=== PATIENT | male | born 1965 | race Caucasian/White ===

== ENCOUNTER 2016-08-22 18:23 | Emergency (ER) | payer BC ==
[~2016-08-22] VITALS: Ht 172.7 cm; Wt 97.5 kg
[2016-08-22 18:44] VITALS: BP 174/99
--- NOTE | 2016-08-22 19:23 | NUR ---
PT TAKEN TO BED 1
[2016-08-22 19:27] VITALS: BP 146/82
--- NOTE | 2016-08-22 19:27 | NUR ---
51 Y/O HERE C/O COUGH AND TIDENESS ON CHEST X 1 MONTH. NO S/S OF DISTRESS NOTED AT THIS TIME. PT O2 SAT 100% ON RA. ER MD AWARED OF IT.
--- NOTE | 2016-08-22 19:30 | NUR ---
Dr. Otero evaluating patient at bedside.
[2016-08-22] MEDS ORDERED: NACL 0.9% 1,000 ML IV ONE (19:40)
[2016-08-22] MEDS ORDERED: AMOXICILLIN 500 MG CAP PO ONE (19:40)
[2016-08-22] MEDS ORDERED: ASPIRIN 81 MG TAB.CHEW PO ONE (19:40)
[2016-08-22] MEDS ORDERED: POTASSIUM CHLORIDE 10 MEQ TABER PO ONE (20:30)
[2016-08-22] MEDS ORDERED: NITROGLYCERIN 2% 1 GM PKT TP ONE (20:35)
[2016-08-22] MEDS ORDERED: METOPROLOL 25 MG TAB PO ONE (20:35)
--- NOTE | 2016-08-22 20:41 | NUR ---
PT WENT AMA, ER MD AWARED OF IT. NO S/S OF DISTRESS AT THIS TIME.
[2016-08-22] MEDS ORDERED: LISINOPRIL40 M1 PO (20:42)
[2016-08-22] MEDS ORDERED: ELIQUIS5 MG PO (20:42)
[2016-11-25] MEDS ORDERED: PROVENTIL HFA M18 GM INH (11:57)
[2016-11-25] MEDS ORDERED: LEVAQUIN750 MG PO (11:57)
[2016-11-25] MEDS ORDERED: ATIVAN0.5 MG PO (11:57)
[2016-11-25] MEDS ORDERED: BD LACTINEX1.4 MG PO (14:20)
[2016-11-25] MEDS ORDERED: CLEOCIN HCL150 MG PO (14:20)
== END 2016-08-22 20:41 | disposition left against medical advice (07) ==
LOC: MED 18:23
DX: R07.89 Other chest pain (principal); R05 Cough; R06.02 Shortness of breath; I10 Essential (primary) hypertension; F17.200 Nicotine dependence, unspecified, uncomplicated; Z53.21 Procedure and treatment not carried out due to patient leaving prior to being seen by health care provider; Z71.6 Tobacco abuse counseling
CPT/HCPCS: 36415; 71010; 80053; 84484; 85025; 85610; 85730; 93005; 99285; J7030; Q0092

== ENCOUNTER 2016-11-22 17:23 | Inpatient (IN) | payer BC ==
[~2016-11-22] VITALS: Ht 172.7 cm; Wt 92.5 kg
[~2016-11-22 17:23] MED LIST: APIX5TAB PO; LISI40TA4 PO
[2016-11-22 17:41] VITALS: BP 144/86
[2016-11-22 18:25] LABS: APPEARANCE,URINE CLEAR (CLEAR); BILIRUBIN,URINE NEGATIVE (NEGATIVE); BLOOD, URINE 1+ (NEGATIVE); COLOR,URINE YELLOW (YELLOW); HEMOGLOBIN 13.4 g/dL (12.0-18.0); LEUKOCYTE ESTERASE ,URINE NEGATIVE (NEGATIVE); NITRITE, URINE NEGATIVE (NEGATIVE); PROTEIN,URINE NEGATIVE (NEGATIVE); UGLUCOSE NEGATIVE (NEGATIVE)
[2016-11-22 18:27] LABS: BASOPHILS # (AUTO) 0.1 K/uL (0.00-0.22); BASOPHILS % (AUTO) 1.4 % (0.0-2.0); EOSINOPHILS # (AUTO) 0.1 K/uL (0-0.4); EOSINOPHILS % (AUTO) 2.3 % (0.0-4.0); HEMATOCRIT 40.4 % (36-52); LYMPHOCYTES # (AUTO) 0.8 K/uL (2.0-11.5); LYMPHOCYTES % (AUTO) 13.1 % (20.5-51.1); MEAN CORPUSCULAR HEMOGLOBIN 30 pg (27-31); MEAN CORPUSCULAR HGB CONC 33 g/dL (33-37); MEAN CORPUSCULAR VOLUME 90 fL (80-94); MONOCYTES # (AUTO) 0.5 K/uL (0.8-1.0); MONOCYTES % (AUTO) 7.7 % (1.7-9.3); NEUTROPHILS # (AUTO) 4.6 K/uL (1.8-7.7); NEUTROPHILS % (AUTO) 75.5 % (42.2-75.2); PLATELET COUNT (AUTO) 109 K/uL (140-450); RED BLOOD CELL COUNT(AUTO) 4.49 MIL/uL (4.20-6.10); RED CELL DISTRIBUTION WIDTH 13.6 % (11.6-13.7); WHITE BLOOD COUNT (AUTO) 6.1 K/uL (4.8-10.8)
[2016-11-22 18:40] LABS: BACTERIA,URINE None Seen /HPF (None Seen); RBC,URINE 0-5 (RARE) /HPF (0-5); SQUAMOUS EPITHELIAL CELL,UR None Seen /LPF (0-3 (FEW)); WBC,URINE NONE SEEN /HPF (0-5)
[2016-11-22 18:43] LABS: ANION GAP 13.2 (8-16); CALCIUM 8.5 mg/dL (8.5-10.1); CARBON DIOXIDE 28.3 mmol/L (21-32); CREATININE 1.1 mg/dL (0.6-1.3); POTASSIUM 3.5 mmol/L (3.5-5.1)
[2016-11-22 18:46] LABS: INR 1.1 (0.8-1.2); PROTHROMBIN TIME 10.6 secs (10.8-13.4)
[2016-11-22 18:50] LABS: ALBUMIN 3.2 g/dL (3.4-5.0); TOTAL BILIRUBIN 0.3 mg/dL (0.0-1.0); TOTAL PROTEIN, SERUM 6.5 g/dL (6.4-8.2)
[2016-11-22 18:52] LABS: LACTIC ACID 1.4 mmol/L (0.4-2.0)
--- NOTE | 2016-11-22 19:25 | NUR ---
TO ER BED 5
--- NOTE | 2016-11-22 19:28 | NUR ---
Patient being evaluated by physician at bedside.
[2016-11-22] MEDS ORDERED: NACL 0.9% 1,000 ML IV ONE (19:35)
[2016-11-22] MEDS ORDERED: KETOROLAC 30 MG/ML VIAL IVP ONE (19:35)
[2016-11-22] MEDS ORDERED: PIPERACILLIN/TAZOBACTAM 3.375 GM in DEXTROSE 5% 50 ML IV ONE (19:45)
[2016-11-22] MEDS ORDERED: PIPERACILLIN/TAZOBACTAM 3.375 GM VIAL IV ONE (19:53)
--- NOTE | 2016-11-22 20:00 | NUR ---
PATIENT PRESENTS TO ED WITH C/O CHEST PAIN OF 8/10 X 1 DAY PT DENIES N/V/D; SKIN IS PINK/WARM/DRY; AAOX4 WITH EVEN AND STEADY GAIT; HR EVEN AND REGULAR; PT DENIES ANY FEVER OR SOB AT THIS TIME; PATIENT STATES PAIN OF 8/10 AT THIS TIME; VSS; PATIENT POSITIONED FOR COMFORT; HOB ELEVATED; BEDRAILS UP X2; BED DOWN. ER MD MADE AWARE OF PT STATUS.
[2016-11-22] MEDS ORDERED: ASPIRIN 81 MG TAB.CHEW PO ONE (20:05)
--- NOTE | 2016-11-22 20:40 | NUR ---
Patient will be admitted to care of DR MURPHY. Admited to TELE. Will go to room 105A. Belongings list completed. Report to YARI WEI.
[2016-11-22] MEDS ORDERED: ACETAMINOPHEN 325 MG TAB PO PRN (20:45)
[2016-11-22] MEDS ORDERED: ONDANSETRON 4 MG/2 ML VIAL IVP PRN (20:45)
[2016-11-22] MEDS ORDERED: LORazepam 2 MG/ML VIAL IVP PRN (20:45)
[2016-11-22] MEDS ORDERED: HYDROcodone/APAP 5/325 MG 1 TAB TAB PO PRN (20:45)
[2016-11-22 20:48] VITALS: BP 153/97
--- NOTE | 2016-11-22 20:50 | NUR ---
PATIENT ADMITTED TO THE UNIT FROM ED, PATIENT ARRIVED VIA GURNEY, ON ROOM AIR, NO SOB NOTED BUT PATIENT COUGHING PERSISTENTLY, MILD SPUTUM PRODUCTION. PATIENT ABLE TO AMBULATE TO BED WITH ASSISTANCE, MILD WEAKNESS NOTED. PATIENT AAOX4, CONNECTED TO TELE MONITOR, ORIENTED TO ROOM AND CALL LIGHT. IV TO LEFT UPPER ARM PATENT AND INTACT. SKIN INTACT. SAFETY MEASURES CHECKED, CALL LIGHT WITHIN REACH. WILL CONTINUE TO MONITOR.
[2016-11-22] MEDS: APIXABAN 2.5 MG TAB PO SCH (21:00)
[2016-11-22] MEDS ORDERED: LEVOFLOXACIN 750 MG/D5W PREMIX 150 ML IV SCH (21:00)
[2016-11-22] MEDS ORDERED: ALBUTEROL 0.083% 2.5 MG/3 ML NEBU IH PRN (21:05)
[2016-11-22] MEDS ORDERED: CLINDAMYCIN 600 MG/4 ML VIAL ONE (21:17)
[2016-11-22] MEDS: METOPROLOL 25 MG TAB PO SCH (21:22)
[2016-11-22] MEDS: CLINDAMYCIN 600 MG in DEXTROSE 5% 50 ML IV SCH (21:22)
[2016-11-22] MEDS: NACL 0.9% 1,000 ML IV SCH (21:22)
[2016-11-22] MEDS: ATORVASTATIN 20 MG TAB PO SCH (21:22)
[2016-11-22] MEDS: MORPHINE SULFATE 2 MG/ML SYR IVP PRN (21:39)
--- NOTE | 2016-11-22 21:40 | NUR ---
ADMINISTERED PAIN MEDICATION PER MD ORDER, PATIENT C/O CHEST PAIN 8/10 IN MEDIAL CHEST. WORSE WITH COUGHING. WILL CONTINUE TO MONITOR.
--- NOTE | 2016-11-22 22:00 | NUR ---
ATTEMPTED TO INSTRUCT PT ON USE OF INCENTIVE SPIROMETER, HOWEVER PT UNABLE TO DO DUE TO PERSISTENT NON PRODUCTIVE COUGH. PT'S RN, ERIBERTO INFORMED OF PT'S INABILITY TO DO INCENTIVE SPIROMETER AND HIS COUGH. SHE WILL CALL MD FOR COUGH MEDICATION.
--- NOTE | 2016-11-22 22:00 | NUR ---
PAGED DR BEST, PATIENT HAVING PERSISTENT COUGH WITH SPUTUM PRODUCTION, REQUESTED COUGH MEDICINE, WILL F/U WITH ORDERS.
[2016-11-22] MEDS: LEVOFLOXACIN 750 MG/D5W PREMIX 150 ML IV SCH (22:52)
[2016-11-22] MEDS: guaiFENesin/CODEINE 100/10MG 5 ML UDC PO SCH (23:00)
[2016-11-23] VITALS: BP 135/84
--- NOTE | 2016-11-23 00:29 | NUR ---
VITAL SIGNS STABLE, PATIENT CONTINUES TO HAVE PERSISTENT COUGH WITHOUT SOB. PROVIDED HOT WATER AND TEA, PATIENT SITTING UP IN BED, CALL LIGHT WITHIN REACH. WILL CONTINUE TO MONITOR.
[2016-11-23] MEDS: MORPHINE SULFATE 2 MG/ML SYR IVP PRN ×5 (01:43→20:19)
--- NOTE | 2016-11-23 02:35 | NUR ---
PATIENT RESTING IN BED, SPUTUM CULTURE OBTAINED CALL LIGHT WITHIN REACH. WILL CONTINUE TO MONITOR.
[2016-11-23 04:00] VITALS: BP 134/67
--- NOTE | 2016-11-23 04:22 | NUR ---
VITAL SIGNS STABLE, NO SOB OR SIGN OF DISTRESS, CALL LIGHT WITHIN REACH. WILL CONTINUE TO MONITOR.
[2016-11-23] MEDS ORDERED: CLINDAMYCIN 600 MG/4 ML VIAL ONE (04:45)
[2016-11-23] MEDS: CLINDAMYCIN 600 MG in DEXTROSE 5% 50 ML IV SCH (04:53)
[2016-11-23] MEDS: guaiFENesin/CODEINE 100/10MG 5 ML UDC PO SCH (05:16)
[2016-11-23 06:17] LABS: BASOPHILS # (AUTO) 0.1 K/uL (0.00-0.22); BASOPHILS % (AUTO) 1.8 % (0.0-2.0); EOSINOPHILS # (AUTO) 0.1 K/uL (0-0.4); EOSINOPHILS % (AUTO) 1.9 % (0.0-4.0); HEMATOCRIT 37.7 % (36-52); HEMOGLOBIN 12.8 g/dL (12.0-18.0); LYMPHOCYTES # (AUTO) 0.9 K/uL (2.0-11.5); LYMPHOCYTES % (AUTO) 15.5 % (20.5-51.1); MEAN CORPUSCULAR HEMOGLOBIN 30 pg (27-31); MEAN CORPUSCULAR HGB CONC 34 g/dL (33-37); MEAN CORPUSCULAR VOLUME 89 fL (80-94); MONOCYTES # (AUTO) 0.4 K/uL (0.8-1.0); MONOCYTES % (AUTO) 7.2 % (1.7-9.3); NEUTROPHILS # (AUTO) 4.2 K/uL (1.8-7.7); NEUTROPHILS % (AUTO) 73.6 % (42.2-75.2); PLATELET COUNT (AUTO) 89 K/uL (140-450); RED BLOOD CELL COUNT(AUTO) 4.22 MIL/uL (4.20-6.10); RED CELL DISTRIBUTION WIDTH 13.1 % (11.6-13.7); WHITE BLOOD COUNT (AUTO) 5.7 K/uL (4.8-10.8)
[2016-11-23 06:50] LABS: ANION GAP 13.6 (8-16); CALCIUM 8.1 mg/dL (8.5-10.1); CARBON DIOXIDE 26.1 mmol/L (21-32); CREATININE 1.1 mg/dL (0.6-1.3); POTASSIUM 3.7 mmol/L (3.5-5.1)
[2016-11-23 06:58] LABS: CHOL/HDL RATIO 3.8 (1-4.5); MAGNESIUM 1.7 mg/dL (1.8-2.4); PHOSPHORUS 3.4 mg/dL (2.5-4.9)
--- NOTE | 2016-11-23 07:20 | NUR ---
ENDORSED PATIENT TO DAY RN AT BEDSIDE, PATIENT IN STABLE CONDITION.
--- NOTE | 2016-11-23 07:21 | NUR ---
RECEIVED PT IN BED. ALERT, AWAKE, ORIENTEDX4. NO SOB NOTED AT THIS TIME. PAIN PER REASSESSMENT SUBSIDING DOWN. POSITIVE BOWEL SOUNDS NOTED ON FOUR QUADRANTS. PT DENIES ANY PROBLEM WITH BOWEL OR BLADER ELIMINATION. PT AMBULATORY. SKIN INTACT. SAFETY PRECAUTION IN PLACE. CALL LIGHT WITHIN REACH.
[2016-11-23 08:00] VITALS: BP 126/88
[2016-11-23] MEDS ORDERED: LISINOPRIL 20 MG TAB PO SCH (09:00)
[2016-11-23] MEDS ORDERED: guaiFENesin/CODEINE 100/10MG 5 ML UDC PO PRN (09:25)
[2016-11-23] MEDS ORDERED: LORazepam 1 MG TAB PO SCH (09:51)
[2016-11-23] MEDS: METOPROLOL 25 MG TAB PO SCH ×2 (09:54→21:42)
[2016-11-23] MEDS ORDERED: PROMETH/CODEINE 6.25-10MG/5ML 5 ML UDC PO PRN (10:05)
[2016-11-23] MEDS ORDERED: MAG SULF 2000 MG/WATER PREMIX 50 ML IV SCH (10:10)
--- NOTE | 2016-11-23 10:15 | NUR ---
PATIENT HAS BEEN SCREENED AND CATEGORIZED MODERATE NUTRITION RISK. PATIENT WILL BE SEEN WITHIN 3-5 DAYS OF ADMISSION. 11/25/16-11/27/[address]
--- NOTE | 2016-11-23 10:16 | NUR ---
ABG ATTEMPTED COULD NOT OBTAIN PT DEFERS FURTHER ATTEMPTS AT THIS TIME
[2016-11-23] MEDS: APIXABAN 2.5 MG TAB PO SCH ×2 (10:19→21:00)
--- NOTE | 2016-11-23 10:56 | NUR ---
CM NOTE PER FEEDER/FOLDER PHYLLIS SEND REVIEWS TO [employer] FAX# [phone]. INITIAL REVIEW SENT TO [employer] [facility] FAX# [phone] # [phone] REF# [id number]
--- NOTE | 2016-11-23 11:00 | NUR ---
RECEIVED A CALL [facility] REGARDING DR. BUTTERFIELD'S ORDER FOR CT SCHEST ANGIOGRAM WITH CONTRAST. 20 G IV INSERTED ON RIGHT AC. PT ON NPO FOR 2 HRS FOR THE PROCEDURE. PT VERBALIZED UNDERSTANDING.
[2016-11-23 12:00] VITALS: BP 156/98
--- NOTE | 2016-11-23 12:00 | NUR ---
SECURED INFORMED CONSENT REGARDING THE CT CHEST ANGIOGRAM WITH CONTRAST. PT VERBALIZED UNDERSTANDING. PT SIGNED CONSENT. DR. KIRAN AWARE ANS SIGNED. RN WITNESSED.
--- NOTE | 2016-11-23 13:20 | NUR ---
SPOKE WITH DR. GALICIA ABOUT ABG AND HOW IT WAS ATTEMPTED TWICE WITH ONE BEING VENOUS AND PT HAS REFUSED ANY OTHER ATTEMPTS AT THIS TIME, DR. GALICIA D\C THE ABG FOR THIS AFTERNOON AND WILL RE ORDER FOR
--- NOTE | 2016-11-23 15:10 | NUR ---
ADA FROM RADIOLOGY DEPT CAME TO PICK PT ON NINA FOR THE CT CHEST ANGIOGRAM WITH CONTRAST. PT COMPLAINT OF PAIN, MEDICATED PRN ORDERED.
--- NOTE | 2016-11-23 15:29 | NUR ---
PT CAME BACK FROM CAT SCAN ON STABLE CONDITION WITH RADIOLOGY STAFF.
--- NOTE | 2016-11-23 15:45 | NUR ---
PT HOOKED BACK TO IVF AND SCD.
[2016-11-23 16:42] VITALS: BP 157/100
[2016-11-23] MEDS: NACL 0.9% 1,000 ML IV SCH (16:44)
--- NOTE | 2016-11-23 16:48 | NUR ---
DR GALICIA MADE AWARE OF BLOOD PRESSURE RESULT OF PT FROM 12 PM TO 4PM WHICH IS TRENDING UP. DR SAID HE WILL PUT AN ORDER.
--- NOTE | 2016-11-23 17:00 | NUR ---
AND DAUGHTER OF PT CAME TO VISIT PT. INFORMED THE RN THAT THEY WOULD WANT TO SPEAK WITH THE DOCTOR TOMORROW REGARDING PT STATUS. MADE THE FAMILY AWARE THAT IF THEY WANT TO SPEAK WITH THE DOCTOR THE RESIDENT IS AVAILABLE TO TALK TO THEM. BUT SAID SHE WANTED TO SPEAK TOMORROW AM INSTEAD. AND WOULD WANT THE RN NURSE IN AM TO CALL THEM. NUMBERS NOTED ON SBAR.
[2016-11-23] MEDS: cloNIDine 0.1 MG TAB PO PRN (17:30)
--- NOTE | 2016-11-23 19:00 | NUR ---
URINE SPECIMEN OBTAINED FOR DRUG SCREEN SENT TO LAB.
--- NOTE | 2016-11-23 19:30 | NUR ---
RECEIVED REPORT FROM DAY RN AT BEDSIDE, PATIENT IS AAOX4 RESTING IN BED, ON ROOM AIR, NO SOB OR SIGN OF DISTRESS AT THIS TIME, SKIN INTACT, IV TO RAC AND LAC PATENT AND INTACT. DENIES PAIN. NOTED PATIENT HAS INTERMITTENT COUGH. DISCUSSED PLAN OF CARE WITH PATIENT , PATIENT VERBALIZED UNDERSTANDING, CALL LIGHT WITHIN REACH. WILL CONTINUE TO MONITOR.
--- NOTE | 2016-11-23 19:32 | NUR ---
PT KEPT CLEAN DRY AND COMFORTABLE, NEEDS ATTENDED. NO SOB NOTED AT THIS TIME. DENIES ANY PAIN OR DISCOMFORT AT THIS TIME. NO SIGNS AND SYMPTOMS OF ACUTE DISTRESS NOTED. ENDORSED TO NEXT SHIFT FOR CONTINUITY OF CARE.
[2016-11-23 20:00] VITALS: BP 137/75
[2016-11-23] MEDS: methylPREDNISolone SS 40 MG/ML VIAL IVP SCH (21:42)
[2016-11-23] MEDS: LEVOFLOXACIN 750 MG/D5W PREMIX 150 ML IV SCH (21:42)
[2016-11-23] MEDS: ATORVASTATIN 20 MG TAB PO SCH (21:42)
[2016-11-23 22:04] LABS: AMPHETAMINE, URINE NEG. ng/ml (NEG <=1000); BARBITURATE, URINE NEG. ng/ml (NEG <=200); BENZODIAZEPINE, URINE NEG. ng/mL (NEG <=200); CANNABINOID, URINE NEG. ng/mL (NEG <=50); COCAINE, URINE NEG. ng/mL (NEG <=300); OPIATE, URINE POS. ng/mL (NEG <=2000); PHENCYCLIDINE SCREEN,URINE NEG. ng/mL (NEG <=25)
--- NOTE | 2016-11-23 22:05 | NUR ---
PM MEDS ADMINISTERED, PATIENT TOLERATED WELL, NO SOB OR SIGN OF DISTRESS AT THIS TIME, CALL LIGHT WITHIN REACH. WILL CONTINUE TO MONITOR.
[2016-11-24] VITALS: BP 132/81
--- NOTE | 2016-11-24 | NUR ---
PATIENT SLEEPING, NO SOB OR SIGN OF DISTRESS, CALL LIGHT WITHIN REACH. WILL CONTINUE TO MONITOR.
--- NOTE | 2016-11-24 02:20 | NUR ---
PATIENT SLEEPING, NO SOB OR SIGN OF DISTRESS, CALL LIGHT WITHIN REACH. WILL CONTINUE TO MONITOR.
[2016-11-24 04:00] VITALS: BP 104/61
--- NOTE | 2016-11-24 04:30 | NUR ---
VITAL SIGNS STABLE, NO SOB OR SIGN OF DISTRESS AT THIS TIME, CALL LIGHT WITHIN REACH. WILL CONTINUE TO MONITOR.
[2016-11-24 06:25] LABS: BASOPHILS # (AUTO) 0.1 K/uL (0.00-0.22); BASOPHILS % (AUTO) 1.3 % (0.0-2.0); EOSINOPHILS # (AUTO) 0.1 K/uL (0-0.4); EOSINOPHILS % (AUTO) 1.2 % (0.0-4.0); HEMATOCRIT 40.2 % (36-52); HEMOGLOBIN 13.6 g/dL (12.0-18.0); LYMPHOCYTES # (AUTO) 0.7 K/uL (2.0-11.5); LYMPHOCYTES % (AUTO) 13.8 % (20.5-51.1); MEAN CORPUSCULAR HEMOGLOBIN 30 pg (27-31); MEAN CORPUSCULAR HGB CONC 34 g/dL (33-37); MEAN CORPUSCULAR VOLUME 89 fL (80-94); MONOCYTES # (AUTO) 0.2 K/uL (0.8-1.0); MONOCYTES % (AUTO) 4.5 % (1.7-9.3); NEUTROPHILS # (AUTO) 3.8 K/uL (1.8-7.7); NEUTROPHILS % (AUTO) 79.2 % (42.2-75.2); PLATELET COUNT (AUTO) 96 K/uL (140-450); RED BLOOD CELL COUNT(AUTO) 4.52 MIL/uL (4.20-6.10); RED CELL DISTRIBUTION WIDTH 13.7 % (11.6-13.7); WHITE BLOOD COUNT (AUTO) 4.9 K/uL (4.8-10.8)
[2016-11-24 06:35] LABS: ANION GAP 11.1 (8-16); CALCIUM 8.3 mg/dL (8.5-10.1); CARBON DIOXIDE 28.5 mmol/L (21-32); CREATININE 1.1 mg/dL (0.6-1.3); POTASSIUM 4.6 mmol/L (3.5-5.1)
[2016-11-24 06:44] LABS: MAGNESIUM 2.3 mg/dL (1.8-2.4); PHOSPHORUS 3.9 mg/dL (2.5-4.9)
--- NOTE | 2016-11-24 07:32 | NUR ---
ENDORSED PATIENT TO DAY RN AT BEDSIDE, PATIENT IN STABLE CONDITION
--- NOTE | 2016-11-24 07:33 | NUR ---
RECEIVED REPORT FROM THE CHAPERONE NURSE AT BEDSIDE FOR CONTINUITY OF CARE. PT WAS SLEEPING. NOTED NO SIGNS OF DISTRESS. IV L UA 22G NS AT 50ML. R AC 20G SL. WILL BE BACK TO ASSESS PT.
--- NOTE | 2016-11-24 07:48 | NUR ---
PATIENT WITH MORNING FOOD TRAY AWAKE AND ALERT DENIES SOB INSTRUMENTATION AND CONTROLS DESIGNER TO ATTEMPT ARTERIAL BLOOD GAS ORDER AT A LATER TIME
[2016-11-24 08:00] VITALS: BP 117/91
--- NOTE | 2016-11-24 08:00 | NUR ---
PT AWAKE AND ORIENTED. INTRODUCED MYSELF AND UPDATED THE BOARD. WENT OVER THE PLAN FOR TODAY. NO TESTS ORDERED AT THIS TIME. PT HAS PRN BREATHING TX. EDUCATED PT TO LET ME KNOW IF HE NEEDS ONE. PT HAS A SLIGHT COUGH AND SPUTUM. HE IS SPITTING UP IN A VOMIT BAG. V/S WITHIN NORMAL RANGE. PT IS RUNNING BRADYCARDIA AT 44. COMPLAINS OF SOME PAIN 4/10 BUT REFUSES MED AT THIS TIME. WILL LET ME KNOW WHEN IT GETS WORSE. PT'S IS HERE AT BEDSIDE TO TALK TO THE MD. WILL CONTINUE TO MONITOR PT.
[2016-11-24 09:03] LABS: BLOOD GAS BASE EXCESS -0.6 mmol/L (-2.0-2.0); BLOOD GAS HCO3 23.6 mmol/L; BLOOD GAS O2 SAT% 95.7 % (92.0-98.5); BLOOD GAS PCO2 37.3 mmHg (20-50); BLOOD GAS PH 7.419 (7.35-7.45); BLOOD GAS PO2 81.8 mmHg
[2016-11-24] MEDS: methylPREDNISolone SS 40 MG/ML VIAL IVP SCH ×2 (09:28→20:33)
[2016-11-24] MEDS: METOPROLOL 25 MG TAB PO SCH ×2 (09:29→20:33)
[2016-11-24] MEDS: APIXABAN 2.5 MG TAB PO SCH ×2 (09:29→20:35)
--- NOTE | 2016-11-24 09:30 | NUR ---
ADMINISTERED MORNING MEDS. PT TOLERATED WELL. WILL CONTINUE TO MONITOR PT.
--- NOTE | 2016-11-24 10:31 | NUR ---
PT AMBULATED TO THE BATHROOM. AT BEDSIDE. CHANGED ALL LINENS AND PAD. EMPTIED URINAL 500ML OF YELLOW CLEAR URINE. PT BACK IN BED. APPLIED THE SCD'S. CALL LIGHT WITHIN REACH. NEW VOMIT BAG ON TABLE. WILL CONTINUE TO MONITOR PT.
[2016-11-24] MEDS: MORPHINE SULFATE 2 MG/ML SYR IVP PRN ×4 (10:33→23:38)
--- NOTE | 2016-11-24 10:44 | NUR ---
CM NOTE CONCURRENT REVIEW SENT TO [facility] FAX# [phone] REF# [id number] ATTN: KRISTAL MIX PH# [phone] EXT [phone]
[2016-11-24 12:00] VITALS: BP 133/70
--- NOTE | 2016-11-24 12:00 | NUR ---
PT RESTING W/ FAMILY MEMBER AT BEDSIDE. NOTICED NO SIGNS OF DISTRESS. WILL CONTINUE TO MONITOR PT.
[2016-11-24] MEDS: NACL 0.9% 1,000 ML IV SCH (12:44)
--- NOTE | 2016-11-24 13:47 | NUR ---
PT C/O OF PAIN 12/18. ADMINISTERED PAIN MEDS. PT TOLERATED WELL. WILL CONTINUE TO MONITOR PT.
--- NOTE | 2016-11-24 15:07 | NUR ---
CM NOTE RECEIVED CALL FROM [facility] # [phone] OF [facility] FOR [facility] AND SHE SAID THEY ARE AUTHORIZING 3 DAYS FOR THIS ADMISSION TELEMETRY LEVEL OF CARE REF# [id number]
--- NOTE | 2016-11-24 15:30 | NUR ---
IV KEEPS BEEPING. HIGH PRESSURE. REPOSTIONED ARM, FLUSHED. ALL BETTER. PATENT.
[2016-11-24 16:00] VITALS: BP 130/76
--- NOTE | 2016-11-24 17:54 | NUR ---
ADMINISTERED PAIN MED. PAIN LEVEL 6/10. PT TOLERATED WELL. WILL CONTINUE TO MONITOR PT.
--- NOTE | 2016-11-24 18:12 | NUR ---
PT RESTING IN BED. EATING DINNER. NO SIGNS OF DISTRESS. WILL CONTINUE TO MONITOR.
[2016-11-24] MEDS: ALBUTEROL SULFATE/IPRATROPIU 3 ML SOL IH SCH ×2 (19:05→23:28)
[2016-11-24] MEDS: BUDESONIDE 0.5 MG/2 ML NEBU INH SCH (19:06)
--- NOTE | 2016-11-24 19:15 | NUR ---
ENDORSED PT TO THE DISTRIBUTION CENTER ADMINISTRATOR NURSE AT BEDSIDE FOR CONTINUITY OF CARE. PT WAS GETTING BREATHING TX WITH R/T AT BEDSIDE. PT IS INSTABLE CONDITION.
--- NOTE | 2016-11-24 19:30 | NUR ---
RECEIVED FROM AM RN IN BED SITTING UP WITH BREATHING TREATMENT ON GOING. ABLE TO VERBALIZE WELL. A/O X 4. ROM X 4. IVF SITE INTACT AND NO INFILTRATION. DENIES ANY PAIN AT THIS TIME. CALL LIGHT WITH IN REACH. TELEMETRY MONITORING. CARE PLANS FOR THE NIGHT DISCUSSED WITH HIM. DX. PNA.
[2016-11-24 19:56] VITALS: BP 144/85
[2016-11-24] MEDS: LEVOFLOXACIN 750 MG/D5W PREMIX 150 ML IV SCH (20:35)
[2016-11-24] MEDS: ATORVASTATIN 20 MG TAB PO SCH (20:35)
[2016-11-25 00:53] VITALS: BP 157/100
--- NOTE | 2016-11-25 00:54 | NUR ---
PT. STATED HE IS HUNGRY. PROVIDED WITH SANDWICH. STILL AWAKE AT THIS TIME. NO SOB. COUGHING INTERMITTENTLY. PRODUCTIVE.
[2016-11-25 01:29] VITALS: BP 159/88
[2016-11-25] MEDS: cloNIDine 0.1 MG TAB PO PRN ×2 (01:35→03:42)
[2016-11-25] MEDS: ALBUTEROL SULFATE/IPRATROPIU 3 ML SOL IH SCH ×4 (03:30→15:10)
--- NOTE | 2016-11-25 03:43 | NUR ---
PT. HAD BREATHING TREATMENT AT THIS TIME. COMPLAINED THAT HE CAN NOT SLEEP AND FEELS JITTERY INSIDE. REQUESTED FOR SOMETHING TO CALM HIM. MEDICATED WITH LORAZEPAM 2 MG. IVP WITH 6 ML NS. WILL MONITOR .
[2016-11-25 04:40] VITALS: BP 132/78
--- NOTE | 2016-11-25 05:20 | NUR ---
SLEPT AFTER LORAZEPAM IVP GIVEN. WAKES UP WHEN AWAKENED EASILY. PT. SLEEPING WELL AT THIS TIME. VERBALIZES WELL WHEN AWAKENED. NO SOB.
[2016-11-25 07:08] LABS: BASOPHILS # (AUTO) 0.1 K/uL (0.00-0.22); EOSINOPHILS # (AUTO) 0.1 K/uL (0-0.4); EOSINOPHILS % (AUTO) 0.9 % (0.0-4.0); HEMOGLOBIN 12.8 g/dL (12.0-18.0); LYMPHOCYTES # (AUTO) 0.8 K/uL (2.0-11.5); LYMPHOCYTES % (AUTO) 10.9 % (20.5-51.1); MEAN CORPUSCULAR HEMOGLOBIN 29 pg (27-31); MEAN CORPUSCULAR HGB CONC 33 g/dL (33-37); MEAN CORPUSCULAR VOLUME 90 fL (80-94); MONOCYTES # (AUTO) 0.4 K/uL (0.8-1.0); MONOCYTES % (AUTO) 6.1 % (1.7-9.3); NEUTROPHILS # (AUTO) 5.8 K/uL (1.8-7.7); NEUTROPHILS % (AUTO) 81.1 % (42.2-75.2); PLATELET COUNT (AUTO) 118 K/uL (140-450); RED BLOOD CELL COUNT(AUTO) 4.35 MIL/uL (4.20-6.10); RED CELL DISTRIBUTION WIDTH 13.6 % (11.6-13.7); WHITE BLOOD COUNT (AUTO) 7.2 K/uL (4.8-10.8)
[2016-11-25] MEDS: BUDESONIDE 0.5 MG/2 ML NEBU INH SCH (07:18)
--- NOTE | 2016-11-25 07:54 | NUR ---
RECEIVED REPORT FROM BEAU RN FOR CONTINUITY OF CARE. PATIENT AWAKE A/OX4 NO S/S OF RESP DISTRESS NOTED, NO COMPLAIN OF PAIN ABLE TO MAKE NEEDS KNOWN IV SITE RT AC GAUGE 20 INTACT AND PATIENT IVF INFUSING WELL. PLAN OF CARE DISCUSSED WITH THE PATIENT VITALS STABLE WILL CONTINUE TO MONITOR.
[2016-11-25 08:00] VITALS: BP 137/99
[2016-11-25 08:14] LABS: MAGNESIUM 2.1 mg/dL (1.8-2.4); PHOSPHORUS 3.2 mg/dL (2.5-4.9)
[2016-11-25] MEDS: NACL 0.9% 1,000 ML IV SCH (09:20)
[2016-11-25] MEDS: methylPREDNISolone SS 40 MG/ML VIAL IVP SCH (09:21)
[2016-11-25] MEDS: APIXABAN 2.5 MG TAB PO SCH (09:22)
[2016-11-25] MEDS: MORPHINE SULFATE 2 MG/ML SYR IVP PRN (09:23)
[2016-11-25] MEDS: METOPROLOL 25 MG TAB PO SCH (09:23)
--- NOTE | 2016-11-25 09:34 | NUR ---
DUE MEDS GIVEN TOLERATED WELL. C/O PAIN MEDICATED WITH MORPHINE 2 MG IVP AT THIS TIME.
[2016-11-25 10:48] LABS: POTASSIUM 4.2 mmol/L (3.5-5.1)
[2016-11-25 10:49] LABS: ANION GAP 11.1 (8-16); CARBON DIOXIDE 27.1 mmol/L (21-32); CREATININE 0.9 mg/dL (0.6-1.3)
[2016-11-25 10:58] LABS: CALCIUM 8.4 mg/dL (8.5-10.1)
--- NOTE | 2016-11-25 11:34 | NUR ---
CM NOTE CONCURRENT REVIEW SENT TO [facility] FAX# [phone] REF# [id number] ATTN: KRISTAL MIX PH# [phone] EXT [phone]
[2016-11-25 11:57] VITALS: BP 109/47
[2016-11-25] MEDS ORDERED: ALBU0.0912 INH (11:57)
[2016-11-25] MEDS ORDERED: ATI.5 PO (11:57)
[2016-11-25] MEDS ORDERED: LEVO750T2 PO (11:57)
--- NOTE | 2016-11-25 11:59 | NUR ---
PATIENT IS SLEEPING , LOW HR NOTED 56 , DENIES ANY PAIN VITALS STABLE AT THIS TIME.
--- NOTE | 2016-11-25 14:00 | NUR ---
RELAXED RESTING WELL AT THIS TIME.
[2016-11-25] MEDS ORDERED: CLIN150C1 PO (14:20)
[2016-11-25] MEDS ORDERED: LACT1.4C PO (14:20)
--- NOTE | 2016-11-25 16:00 | NUR ---
DISCHARGE INSTRUCTION AND ELECTRONIC PRESCRIPTION TO [facility] GIVEN VERBALIZED UNDERSTANDING. ALL PAPERWORK SIGNED BY THE PATIENT. DISCHARGE PATIENT HOME ACCOMPANY BY FAMILY MEMBER STABLE CONDITION UPON DISCHARGE.
== END 2016-11-25 16:00 | disposition home or self-care (01) | DRG 177 ==
LOC: MED 17:23 → MTU 20:26
PROVIDERS: ADMIT Family Medicine; ATTEND Family Medicine
DX: J69.0 Pneumonitis due to inhalation of food and vomit (principal); J96.01 Acute respiratory failure with hypoxia; J44.1 Chronic obstructive pulmonary disease with (acute) exacerbation; E44.0 Moderate protein-calorie malnutrition; I10 Essential (primary) hypertension; I48.2 Chronic atrial fibrillation; F19.10 Other psychoactive substance abuse, uncomplicated; E83.42 Hypomagnesemia; R79.89 Other specified abnormal findings of blood chemistry; F17.200 Nicotine dependence, unspecified, uncomplicated; E11.65 Type 2 diabetes mellitus with hyperglycemia; E66.9 Obesity, unspecified; R07.9 Chest pain, unspecified; F14.10 Cocaine abuse, uncomplicated; Z87.898 Personal history of other specified conditions; Z79.01 Long term (current) use of anticoagulants; Z68.31 Body mass index [BMI] 31.0-31.9, adult; Z91.14 Patient's other noncompliance with medication regimen; Z87.828 Personal history of other (healed) physical injury and trauma
CPT/HCPCS: 36415; 36600; 71020; 71275; 80048; 80053; 80305; 81001; 82803; 83036; 83605; 83735; 83880; 84100; 84484; 85025; 85610; 87040; 87070; 87081; 87205; 93005; 94640; 94761; 96365; 96375; 99285; J1885; J1956; J2060; J2270; J2543; J2920; J3475; J3490; J7030; J7060; J7613; J7620; J7626; Q9967

== ENCOUNTER 2019-07-08 10:04 | Inpatient (IN) | payer BC ==
[~2019-07-08] VITALS: Ht 172.7 cm; Wt 113.4 kg
[~2019-07-08 10:04] MED LIST changes: +ALBU0.0912 INH; +ATI.5 PO; +CLIN150C1 PO; +LACT1.4C PO; +LEVO750T2 PO
[2019-07-08 10:13] VITALS: BP 145/87
--- NOTE | 2019-07-08 10:43 | NUR ---
AMBULATORY TO ED 06
--- NOTE | 2019-07-08 10:56 | NUR ---
C/O COUGH, SORE THROAT, FEVER, BODY ACHES X 3DAYS. HAD PNA LAST YEAR. TEMP 102.5 AT THIS TIME. TOOK TYLENOL AT 9 AM TODAY. COOLING MEAUSRES INITIATED. MED HX: HTN, A FIB, PACE MAKER
[2019-07-08] MEDS ORDERED: NACL 0.9% 500 ML IV SCH (10:59)
[2019-07-08] MEDS ORDERED: MORPHINE SULFATE 2 MG/ML SYR IVP ONE (11:00)
[2019-07-08] MEDS ORDERED: PROMETHAZINE 25 MG/ML VIAL IVP ONE (11:00)
[2019-07-08] MEDS ORDERED: methylPREDNISolone SS 125 MG/2 ML VIAL IVP ONE (11:00)
[2019-07-08] MEDS ORDERED: CLINDAMYCIN 900 MG in DEXTROSE 5% 100 ML IV ONE (11:00)
--- NOTE | 2019-07-08 11:23 | NUR ---
XRAY AT BEDSIDE
--- NOTE | 2019-07-08 11:55 | NUR ---
TEMP 100.6 ORAL AT THIS TIME.
--- NOTE | 2019-07-08 11:56 | NUR ---
STAFF CLIMATE SCIENTIST AT BEDSIDE
[2019-07-08] MEDS ORDERED: CLINDAMYCIN 900 MG/6 ML VIAL IV ONE (11:58)
[2019-07-08] MEDS ORDERED: PREG100C PO (12:05)
[2019-07-08] MEDS ORDERED: FLUT1POW3 IH (12:05)
[2019-07-08] MEDS ORDERED: CARV6.25 PO (12:05)
[2019-07-08] MEDS ORDERED: FLUO10CA21 PO (12:05)
[2019-07-08] MEDS ORDERED: AMLO10TA4 PO (12:05)
[2019-07-08] MEDS ORDERED: PIPERACILLIN/TAZOBACTAM 3.375 GM in DEXTROSE 5% 50 ML IV ONE (12:15)
[2019-07-08] MEDS ORDERED: PIPERACILLIN/TAZOBACTAM 3.375 GM VIAL IV ONE ×2 (12:59→20:02)
[2019-07-08 13:08] LABS: BASOPHILS % (AUTO) 0.6 % (0.0-2.0); EOSINOPHILS # (AUTO) 0.1 K/uL (0-0.4); EOSINOPHILS % (AUTO) 1.8 % (0.0-4.0); HEMATOCRIT 40.1 % (36-52); HEMOGLOBIN 13.2 g/dL (12.0-18.0); LYMPHOCYTES # (AUTO) 0.7 K/uL (2.0-11.5); LYMPHOCYTES % (AUTO) 14.6 % (20.5-51.1); MEAN CORPUSCULAR HEMOGLOBIN 30 pg (27-31); MEAN CORPUSCULAR HGB CONC 33 g/dL (33-37); MEAN CORPUSCULAR VOLUME 89.5 fL (80-94); MONOCYTES # (AUTO) 0.5 K/uL (0.8-1.0); MONOCYTES % (AUTO) 10.5 % (1.7-9.3); NEUTROPHILS # (AUTO) 3.6 K/uL (1.8-7.7); NEUTROPHILS % (AUTO) 72.5 % (42.2-75.2); PLATELET COUNT (AUTO) 96 K/uL (140-450); RED BLOOD CELL COUNT(AUTO) 4.47 MIL/uL (4.20-6.10); RED CELL DISTRIBUTION WIDTH 14.1 % (11.6-13.7); WHITE BLOOD COUNT (AUTO) 4.9 K/uL (4.8-10.8)
[2019-07-08 13:23] LABS: ANION GAP 12.1 (8-16); CARBON DIOXIDE 28.3 mmol/L (21-32); POTASSIUM 3.4 mmol/L (3.5-5.1)
[2019-07-08 13:24] LABS: ALBUMIN 3.2 g/dL (3.4-5.0); TOTAL BILIRUBIN 0.5 mg/dL (0.0-1.0)
[2019-07-08] MEDS ORDERED: ONDANSETRON 4 MG/2 ML VIAL IVP ONE (13:45)
[2019-07-08] MEDS ORDERED: MORPHINE SULFATE 4 MG/ML SYR IVP ONE (13:45)
[2019-07-08 15:12] LABS: APPEARANCE,URINE CLEAR (CLEAR); BILIRUBIN,URINE NEGATIVE (NEGATIVE); BLOOD, URINE NEGATIVE (NEGATIVE); COLOR,URINE YELLOW (YELLOW); LEUKOCYTE ESTERASE ,URINE NEGATIVE (NEGATIVE); NITRITE, URINE NEGATIVE (NEGATIVE); UGLUCOSE NEGATIVE (NEGATIVE)
[2019-07-08] MEDS ORDERED: ONDANSETRON 4 MG/2 ML VIAL IM/IVP PRN (16:10)
[2019-07-08] MEDS ORDERED: LORazepam 2 MG/ML VIAL IM/IVP PRN (16:10)
[2019-07-08] MEDS ORDERED: DOCUSATE SODIUM 100 MG GELCAP PO PRN (16:10)
[2019-07-08] MEDS ORDERED: ZOLPIDEM 5 MG TAB PO PRN (16:10)
[2019-07-08] MEDS ORDERED: ACETAMINOPHEN 325 MG TAB PO PRN (16:10)
[2019-07-08] MEDS ORDERED: HYDROcodone/APAP 5/325 MG 1 TAB TAB PO PRN (16:10)
--- NOTE | 2019-07-08 17:10 | NUR ---
Patient will be admitted to care of DR DAO. Admited to MED SURG. Will go to [facility]. Belongings list completed. Report to SOFIA GREENBERG.
--- NOTE | 2019-07-08 17:15 | NUR ---
Pt admitted to room 117 from ED via wheelchair. Pt amb to bed with steady gait. Received report from ED nurse Melonie. Pt aaox4, provided medical hx. Pt c/o 6/10 chest wall pain with intermittent coughing. Bilat lung fernandez diminished. Will administer pain med as ordered. Left AC IV 20G intact & asymptomatic. Pt oriented to room & unit, able to return demonstrate teachings. Call light within reach.
[2019-07-08] MEDS ORDERED: POTASSIUM CHLORIDE 10 MEQ TABER PO ONE (17:30)
[2019-07-08] MEDS: NACL 0.9% 1,000 ML IV SCH ×2 (17:50→23:51)
[2019-07-08 18:00] VITALS: BP 129/78
[2019-07-08] MEDS: OSELTAMIVIR PHOSPHATE 75 MG CAP PO SCH (18:00)
[2019-07-08] MEDS: CALCIUM CARB/VIT-D 500 MG/200 IU 1 TAB PO SCH (18:00)
[2019-07-08 18:27] LABS: BARBITURATE, URINE NEG. ng/ml (NEG <=200); BENZODIAZEPINE, URINE NEG. ng/mL (NEG <=200); CANNABINOID, URINE NEG. ng/mL (NEG <=50); COCAINE, URINE NEG. ng/mL (NEG <=300); OPIATE, URINE NEG. ng/mL (NEG <=2000); PHENCYCLIDINE SCREEN,URINE NEG. ng/mL (NEG <=25)
[2019-07-08 18:37] LABS: PROTHROMBIN TIME 10.4 secs (10.8-13.4)
[2019-07-08 18:47] LABS: FREE T4 (FREE THYROXINE) 1.12 ng/dL (0.76-1.46); PHOSPHORUS 2.4 mg/dL (2.5-4.9); THYROID STIMULATING HORMONE 0.45 uIU/mL (0.34-3.74)
[2019-07-08] MEDS ORDERED: PNEUMOCOCCAL VACCINE 23 MCG/0.5 ML VIAL IMVAC SCH (18:50)
[2019-07-08] MEDS ORDERED: INFLUENZA VACCINE QUAD 0.5 ML SYR IMVAC PRN (18:50)
--- NOTE | 2019-07-08 19:20 | NUR ---
RECEIVED PT ON BED ON HIGH FOWLERS POSITION, AAOX4, ABLE TO MAKE NEEDS KNOWN, VITAL SIGNS STABLE, AFEBRILE, SAT-97% ON O2 2L NC, OCCASIONAL COUGH NOTED AND COMPLAINING OF CHEST PAIN WHEN COUGHING, STATED NORCO GIVEN WAS NOT EFFECTIVE, WILL MEDICATE WITH MORPHINE, IVF INFUSING WELL, PLAN OF CARE DISCUSSED, SAFETY MEASURES IN PLACED, MAINTAINED ON DROPLET PRECAUTION, CALL LIGHT WITHIN REACH.
[2019-07-08] MEDS ORDERED: ALBUTEROL SULFATE/IPRATROPIU 3 ML SOL IH PRN (19:35)
[2019-07-08] MEDS: MORPHINE SULFATE 2 MG/ML SYR IVP PRN (20:08)
[2019-07-08] MEDS: PIPERACILLIN/TAZOBACTAM 3.375 GM in DEXTROSE 5% 50 ML IV SCH (20:09)
--- NOTE | 2019-07-08 20:10 | NUR ---
MEDICATED PRN FOR PAIN, DUE ZOSYN IVPB ADMINISTERED, INSTRUCTED PT TO COLLECT SPUTUM FOR TEST, VERBALIZED UNDERSTANDING, ALL NEEDS ATTENDED.
[2019-07-08] MEDS: CARVEDILOL 6.25 MG TAB PO SCH (20:47)
[2019-07-08] MEDS: PREGABALIN 50 MG CAP PO SCH (20:47)
[2019-07-08] MEDS: APIXABAN 2.5 MG TAB PO SCH (20:49)
--- NOTE | 2019-07-08 20:50 | NUR ---
DUE HOME MEDS ADMINISTERED ORDERED, PT AMBULATED TO TOILET WITH STEADY GAIT, MONITORED CLOSELY.
[2019-07-09] VITALS: BP 126/67
--- NOTE | 2019-07-09 00:05 | NUR ---
PT COMPLAINING OF CHEST PAIN WHEN COUGHING, VITAL SIGNS STABLE, NO SOB NOTED, MEDICATED PRN WITH MORPHINE IVP, IVF INFUSING WELL, CONTINUE TO MONITOR CLOSELY.
[2019-07-09] MEDS: MORPHINE SULFATE 2 MG/ML SYR IVP PRN ×5 (00:06→20:27)
[2019-07-09] MEDS: OSELTAMIVIR PHOSPHATE 75 MG CAP PO SCH ×3 (00:07→21:31)
--- NOTE | 2019-07-09 03:00 | NUR ---
ROUNDS MADE, SEEN PT SLEEPING, NO SIGNS OF DISTRESS, MONITORED CLOSELY.
[2019-07-09] MEDS ORDERED: PIPERACILLIN/TAZOBACTAM 3.375 GM VIAL IV ONE (04:55)
[2019-07-09] MEDS: PIPERACILLIN/TAZOBACTAM 3.375 GM in DEXTROSE 5% 50 ML IV SCH ×3 (05:04→21:29)
--- NOTE | 2019-07-09 05:07 | NUR ---
PT COMPLAINING OF CHEST PAIN WHEN COUGHING, MEDICATED WITH MORPHINE IVP, NO SOB NOTED, MONITORED CLOSELY.
--- NOTE | 2019-07-09 07:18 | NUR ---
PT AWAKE, NO SIGNS OF DISTRESS, REPORT GIVEN TO YARI PINEDA FOR CONTINUITY OF CARE.
--- NOTE | 2019-07-09 07:22 | NUR ---
RECEIVED REPORT FROM COMM[facility]ITY CENTER COORDINATOR NURSE FOR CONTINUITY OF CARE, PATIENT IS AAO X4 AND SITTING UP IN BED, HEAVY BREATHING NOTED. WILL CONTINUE TO MONITOR FOR SAFETY AND CHANGES IN DISEASE PROCESS.
[2019-07-09] MEDS: NACL 0.9% 1,000 ML IV SCH ×2 (07:33→17:00)
[2019-07-09 07:43] LABS: BASOPHILS % (AUTO) 0.1 % (0.0-2.0); HEMATOCRIT 40.4 % (36-52); HEMOGLOBIN 13.2 g/dL (12.0-18.0); LYMPHOCYTES # (AUTO) 0.6 K/uL (2.0-11.5); LYMPHOCYTES % (AUTO) 8.9 % (20.5-51.1); MEAN CORPUSCULAR HEMOGLOBIN 29 pg (27-31); MEAN CORPUSCULAR HGB CONC 33 g/dL (33-37); MEAN CORPUSCULAR VOLUME 89.6 fL (80-94); MONOCYTES # (AUTO) 0.5 K/uL (0.8-1.0); MONOCYTES % (AUTO) 7.8 % (1.7-9.3); NEUTROPHILS # (AUTO) 5.7 K/uL (1.8-7.7); NEUTROPHILS % (AUTO) 83.2 % (42.2-75.2); PLATELET COUNT (AUTO) 102 K/uL (140-450); RED BLOOD CELL COUNT(AUTO) 4.51 MIL/uL (4.20-6.10); RED CELL DISTRIBUTION WIDTH 14.3 % (11.6-13.7); WHITE BLOOD COUNT (AUTO) 6.9 K/uL (4.8-10.8)
[2019-07-09] MEDS: ALBUTEROL SULFATE/IPRATROPIU 3 ML SOL IH SCH ×4 (07:50→20:28)
[2019-07-09 08:00] VITALS: BP 120/76
[2019-07-09] MEDS: LISINOPRIL 20 MG TAB PO SCH (08:27)
[2019-07-09] MEDS: CALCIUM CARB/VIT-D 500 MG/200 IU 1 TAB PO SCH (08:28)
[2019-07-09] MEDS: CARVEDILOL 6.25 MG TAB PO SCH ×2 (08:28→21:29)
[2019-07-09] MEDS: amLODIPine 5 MG TAB PO SCH (08:28)
[2019-07-09] MEDS: FLUoxetine 10 MG CAP PO SCH (08:29)
[2019-07-09] MEDS: PREGABALIN 50 MG CAP PO SCH ×2 (08:31→21:29)
[2019-07-09] MEDS: APIXABAN 2.5 MG TAB PO SCH ×2 (08:40→21:28)
[2019-07-09 08:47] LABS: MAGNESIUM 2.1 mg/dL (1.8-2.4); PHOSPHORUS 3.5 mg/dL (2.5-4.9)
[2019-07-09 09:00] LABS: ANION GAP 10.6 (8-16); CARBON DIOXIDE 27.8 mmol/L (21-32); POTASSIUM 4.4 mmol/L (3.5-5.1)
[2019-07-09] MEDS ORDERED: NON-FORMULARY ITEM (Lisinopril 1 TAB) PO SCH (09:00)
--- NOTE | 2019-07-09 09:12 | NUR ---
PATIENT HAS BEEN SCREENED AND CATEGORIZED HIGH NUTRITION RISK. PATIENT WILL BE SEEN WITHIN 1-2 DAYS OF ADMISSION. 07/09/19-07/10/[address]
--- NOTE | 2019-07-09 10:00 | NUR ---
PATIENT WAS MEDICATED FOR PAIN IN HIS CHEST, THICK BROWN SPUTUM FROM PRODUCTIVE COUGH. IV FLUIDS RUNNING. ABDOMINAL US COMPLETED. WILL CONTINUE TO MONITOR.
--- NOTE | 2019-07-09 10:28 | NUR ---
DC PLANNIN YRS OLD MALE PATIENT WAS ADMITTED FROM HOME WITH A DX OF BILATERAL PNEUMONIA WITH INFLUENZA B . PT HAS A HX OF PNEUMONIA , ATRIAL PACEMAKER , HTN, A-FIB DEPRESSION COPD AND L4-S1 FUSION. PT WAS TREATED WITH IVF HYDRATION WITH NS ,SOLU-MEDROL IV CLINDAMYCIN AND ZOSYN IV . BLOOD, SPUTUM AND URINE CULTURE PENDING. PLACE PT ON DROPLET PRECAUTION FOR INFLUENZA B TAMIFLU STARTED AND RT PROTOCOL WITH DUONEB. PULMO AND CARDIO CONSULTED. DC PLAN TO GO HOME WHEN STABLE CM TO FOLLOW. Addendum: 07/09/19 at 1416 by Charlee Soriano DC PLANNING RECEIVED A CALL FROM [facility] CM SPOKE WITH BELLO VALENCIA [facility] ARE NOT THE CONTRACTED FACILITY AND REQUESTED ALL THE CLINICALS AND WHEN PT IS STABLE TO BE TRANSFERRED TO CONTACT THEM. SPOKE WITH DR AKERS STATED PT IS STABLE TO BE TRANSFERRED. FAXED ALL THE CLINICALS AND POST STABILIZATION FORM TO [phone]. RECEIVED A CALL FROM [facility] SPOKE WITH JESSE [phone] RECEIVED ALL THE PAPERWORK AND LOOKING FOR HOSPITALS THAT ARE CONTRACTED WITH THE INSURANCE AND CALL US BACK. Addendum: 07/09/19 at 1511 by Charlee Soriano CM DC PLANNING RECEIVED A CALL FROM JESSE RAM SPOKE WITH JESSE VALENCIA TO FAX PT'S INFO TO [facility] AND [facility] [phone] FAXED TO BOTH FACILITY AND TO USE A TRANSPORT WITH [facility] [phone] OR MAC [phone] CM TO FOLLOW Addendum: 07/09/19 at 1525 by Charlee Soriano CM DC PLANNING CALLED [facility] SPOKE WITH JOEL VALENCIA RECEIVED ALL PATIENT'S INFORMATION PROVIDED DR AKERS'S CELL PHONE AND THE UNIT NUMBER. Addendum: 07/10/19 at 1030 by Charlee Soriano CM DC PLANNING RECEIVED A CALL FROM [facility] SPOKE WITH TRE SCHNEIDER FOR PEER TO PEER REPORT PROVIDE DR AKERS'S CELL PHONE AND PROVIDE DR AKERS THE PAGER NUMBER OF DR NOBLE [phone] AND FAXED THE RECENT LABS AND PROGRESS NOTES.
--- NOTE | 2019-07-09 12:30 | NUR ---
PATIENT IS RESTING IN BED WILL CONTINUE TO MONITOR. ON 2 LITERS NC.
[2019-07-09] MEDS ORDERED: methylPREDNISolone SS 40 MG/ML VIAL IVP SCH ×2 (15:00→17:00)
--- NOTE | 2019-07-09 15:00 | NUR ---
PATIENT IS RESTING IN BED, VISITORS AT BEDSIDE, NO SIGNS OF DISTRESS NOTED, MEDICATED FOR PAIN. WILL CONTINUE TO MONITOR.
[2019-07-09 16:00] VITALS: BP 126/79
--- NOTE | 2019-07-09 17:30 | NUR ---
PATIENT IS RESTING IN BED NO SIGNS OF DISTRESS NOTED. WILL CONTINUE TO MONITOR, BREATHING TREATMENTS TOLERATED WELL, SPO2 WNL.
[2019-07-09] MEDS ORDERED: AZITHROMYCIN 500 MG in DEXTROSE 5% 250 ML IV SCH (17:40)
[2019-07-09] MEDS ORDERED: SODIUM PHOS / POTASSIUM PHOS 1 PKT PDR PO SCH (17:55)
--- NOTE | 2019-07-09 19:23 | NUR ---
PATIENT RESTING IN BED PAIN MEDS TO BE GIVEN FOR CHEST PAIN. COUGHING THICK BROWN SPUTUM, PLACED SPUTUM COLLECT CUP AT BEDSIDE TO COLLECT FOR SPUTUM CULTURE. WILL CONTINUE TO MONITOR.
--- NOTE | 2019-07-09 20:43 | NUR ---
RECEIVED PATIENT ON 2L NASAL CANNULA, PULSE OX SAT 94%. SCHEDULED BREATHING TREATMENT ADMINISTERED. TOLERATED TX WELL WITHOUT ADVERSE SIDE EFFECTS. FOLLOW-UP TEACHING ON USE OF INCENTIVE SPIROMETER DONE. PATIENT PERFORMED RETURN DEMONSTRATION WITH POOR EFFORT DUE TO COUGHING. NO ACUTE RESPIRATORY DISTRESS NOTED A THIS TIME. WILL CONTINUE TO MONITOR.
[2019-07-09] MEDS ORDERED: PIPERACILLIN/TAZOBACTAM 3.375 GM in DEXTROSE 5% 50 ML IV SCH (21:00)
[2019-07-09] MEDS ORDERED: VANCOMYCIN PER PHARMACY MC PRN (23:05)
[2019-07-09] MEDS ORDERED: VANCOMYCIN 1,000 MG in DEXTROSE 5% 250 ML IV SCH (23:50)
[2019-07-10] VITALS: BP 145/100
--- NOTE | 2019-07-10 00:05 | NUR ---
RECEIVED PT ON BED ON HIGH FOWLERS POSITION, AAOX4, ABLE TO MAKE NEEDS KNOWN, VITAL SIGNS STABLE, AFEBRILE, SAT-97% ON O2 2L NC, OCCASIONAL COUGH NOTED. IVF INFUSING WELL, PLAN OF CARE DISCUSSED, SAFETY MEASURES IN PLACED, MAINTAINED ON DROPLET PRECAUTION, CALL LIGHT WITHIN REACH. Addendum: 07/10/19 at 0235 by Benjy Yin RN GIVEN ROCEPHIN MD ORDERED. PT TOLERATED WELL.
--- NOTE | 2019-07-10 01:16 | NUR ---
MANUEL FROM [facility] SAID THEY HAVE NO BED AND ACCEPTING PHYSICIAN YET.
[2019-07-10] MEDS ORDERED: cefTRIAXone 1,000 MG VIAL ONE (01:25)
[2019-07-10] MEDS: ALBUTEROL SULFATE/IPRATROPIU 3 ML SOL IH SCH ×4 (01:58→19:22)
--- NOTE | 2019-07-10 02:09 | NUR ---
SCHEDULED BREATHING TREATMENT ADMINISTERED. TOLERATED TX WELL WITHOUT ADVERSE SIDE EFFECTS. NO ACUTE RESPIRATORY DISTRESS NOTED AT THIS TIME. WILL CONTINUE TO MONITOR.
--- NOTE | 2019-07-10 02:15 | NUR ---
PT C/O 10/10 CHEST AND ABD PAIN WHEN COUGHING AND ASKING PAIN MEDICATION. WILL ADMINISTER MORPHINE MD ORDERED.
--- NOTE | 2019-07-10 02:20 | NUR ---
NOT GIVEN MORPHINE D/T PT SLEEPING. MEDICATION RETURNED.
--- NOTE | 2019-07-10 02:41 | NUR ---
PT SLEEPING IN BED. NO ACUTE DISTRESS NOTED.
[2019-07-10] MEDS: MORPHINE SULFATE 2 MG/ML SYR IVP PRN ×4 (03:15→22:24)
--- NOTE | 2019-07-10 03:15 | NUR ---
PT C/O 10/10 CHEST PAIN WHEN COUGHING, GIVEN MORPHINE MD ORDERED. PT TOLERATED WELL.
[2019-07-10] MEDS: NACL 0.9% 1,000 ML IV SCH ×2 (03:27→18:11)
--- NOTE | 2019-07-10 07:05 | NUR ---
RECEIVE REPORT FROM NIGHT NURSE. PT IS STABLE IN BED. IV RUNNING 70 ML/H PT ON 2L NC O2, CALL LIGHT WITHIN REACH. UPDATED WHITE BOARD AND INTRODUCE SELF
[2019-07-10 07:11] LABS: ANION GAP 11.5 (8-16); CARBON DIOXIDE 28.7 mmol/L (21-32); CREATININE 0.8 mg/dL (0.7-1.3); POTASSIUM 4.2 mmol/L (3.5-5.1)
[2019-07-10 07:19] LABS: BASOPHILS % (AUTO) 0.1 % (0.0-2.0); EOSINOPHILS % (AUTO) 0.1 % (0.0-4.0); HEMATOCRIT 39.4 % (36-52); MEAN CORPUSCULAR HEMOGLOBIN 30 pg (27-31); MEAN CORPUSCULAR HGB CONC 33 g/dL (33-37); MONOCYTES # (AUTO) 0.4 K/uL (0.8-1.0); MONOCYTES % (AUTO) 6.1 % (1.7-9.3); NEUTROPHILS % (AUTO) 78.7 % (42.2-75.2); PLATELET COUNT (AUTO) 104 K/uL (140-450); RED BLOOD CELL COUNT(AUTO) 4.38 MIL/uL (4.20-6.10); WHITE BLOOD COUNT (AUTO) 6.4 K/uL (4.8-10.8)
[2019-07-10 07:25] LABS: MAGNESIUM 2.2 mg/dL (1.8-2.4); PHOSPHORUS 3.1 mg/dL (2.5-4.9)
[2019-07-10 08:00] VITALS: BP 155/98
[2019-07-10] MEDS: LISINOPRIL 20 MG TAB PO SCH (09:00)
[2019-07-10] MEDS: amLODIPine 5 MG TAB PO SCH (09:00)
[2019-07-10] MEDS: OSELTAMIVIR PHOSPHATE 75 MG CAP PO SCH ×2 (09:00→20:45)
[2019-07-10] MEDS: CALCIUM CARB/VIT-D 500 MG/200 IU 1 TAB PO SCH (09:00)
[2019-07-10] MEDS: PREGABALIN 50 MG CAP PO SCH ×2 (09:00→20:45)
[2019-07-10] MEDS: FLUoxetine 10 MG CAP PO SCH (09:00)
[2019-07-10] MEDS: CARVEDILOL 6.25 MG TAB PO SCH ×2 (09:00→20:45)
[2019-07-10] MEDS: methylPREDNISolone SS 40 MG/ML VIAL IVP SCH (09:00)
[2019-07-10] MEDS: APIXABAN 2.5 MG TAB PO SCH ×2 (09:00→20:49)
--- NOTE | 2019-07-10 09:00 | NUR ---
ADMINISTERED PT ORDERED MEDICATION, PT TOLERATED WELL. ADMINISTER MORPHINE FOR SEVERE CHEST PAIN OF 9/10. PT STATES CHEST FEELS LIKE IT IS BEING SQUEEZED AND IT HURTS TO BREATH.
[2019-07-10] MEDS: VANCOMYCIN 1,250 MG in DEXTROSE 5% 250 ML IV SCH ×2 (10:39→18:11)
--- NOTE | 2019-07-10 11:00 | NUR ---
PT RESTING IN BED, PT IS STABLE, WILL OCCASIONALLY COUGH, PT ON 2 L NC O2, CALL LIGHT WITHIN REACH.
--- NOTE | 2019-07-10 15:04 | NUR ---
07/10/19 RD INITIAL ASSESSMENT COMPLETED PLEASE REFER TO NUTRITION ASSESSMENT UNDER CARE ACTIVITY FOR ESTIMATED NUTRITIONAL NEEDS. 1. CONTINUE CARDIAC DIET TOLERATED 2. RD PROVIDED NUTRITION EDUCATION ON HEALTHY EATING AND WEIGHT MANAGEMENT. PT ACCEPTED 3. RD TO FOLLOW-UP 5-7 DAYS, LOW RISK RASHID GARRISON RD
[2019-07-10 16:00] VITALS: BP 162/103
--- NOTE | 2019-07-10 16:19 | NUR ---
DISCONTINUE RIGHT FA IV, IT WAS CLOGGED. IV INTACT, PUT DRESSING AND TAPE OVER SITE, PT IS STABLE, CALL LIGHT WITHIN REACH.
--- NOTE | 2019-07-10 17:55 | NUR ---
COLLECTED SPUTUM SAMPLE FROM PT AND TOOK TO LAB. PT IS IN SITTING IN BED, PT IS STABLE ON 2L NC O2, CALL LIGHT WITHIN REACH.
--- NOTE | 2019-07-10 18:24 | NUR ---
ADMINISTER MORPHINE FOR SEVER CHEST PAIN, 02/17. PT STATES IT FEELS LIKE HIS CHEST IS BEING RIPPED APART, ESPECIALLY WHEN HE COUGHS. PT TOLERATED MEDICATION WELL. PUT PT BACK ON OXYGEN.
--- NOTE | 2019-07-10 19:10 | NUR ---
GAVE REPORT TO NIGHT NURSE FOR CONTINUITY OF CARE, PT IS STABLE, CALL LIGHT WITHIN REACH.
--- NOTE | 2019-07-10 19:11 | NUR ---
RECEIVED BEDSIDE REPORT FROM DAY SHIFT NURSE. PT AAOX4, ABLE TO MAKE NEED KNOW. INTERMITTENT COUGHING NOTED. IV SITE ON LFA, 22G, PATENT, INTACT AND ASYMPTOMATIC. SKIN INTACT, WARM AND DRY TO TOUCH. BOARD UPDATED, POC REVIEWED WIT PT AND PT VERBALIZED UNDERSTANDING. BED IN LOW POSITION, CALL LIGHT WITHIN REACH.
--- NOTE | 2019-07-10 20:45 | NUR ---
GIVEN COREG, LYRICA, AND TAMIFLU. PT TOLERATED WELL. HELD ELIQUIS D/T DECREASED PLT.
--- NOTE | 2019-07-10 22:24 | NUR ---
GIVEN ROCEPHIN, PT C/O 10/10 PAIN, GIVEN MORPHINE MD ORDERED, PT TOLERATED WELL.
[2019-07-11] VITALS: BP 153/94
--- NOTE | 2019-07-11 00:05 | NUR ---
VS CHECKED, WITHIN PT'S BASELINE, WILL CONTINUE TO MONITOR.
[2019-07-11] MEDS: ALBUTEROL SULFATE/IPRATROPIU 3 ML SOL IH SCH ×4 (01:26→19:30)
[2019-07-11] MEDS: VANCOMYCIN 1,250 MG in DEXTROSE 5% 250 ML IV SCH ×3 (01:36→17:34)
--- NOTE | 2019-07-11 01:36 | NUR ---
GIVEN VANCOMYCIN MD ORDERED. PT TOLERATED WELL.
[2019-07-11] MEDS: MORPHINE SULFATE 2 MG/ML SYR IVP PRN ×2 (04:12→09:04)
--- NOTE | 2019-07-11 04:12 | NUR ---
PT C/O 10/ PAIN, GIVEN MORPHINE MD ORDERED, PT TOLERATED WELL.
--- NOTE | 2019-07-11 06:50 | NUR ---
PT SLEEPING IN BED. NO ACUTE DISTRESS NOTED. WILL CONTINUE TO MONITOR.
[2019-07-11 06:59] LABS: ANION GAP 10.1 (8-16); CARBON DIOXIDE 31.5 mmol/L (21-32); CREATININE 0.8 mg/dL (0.7-1.3); POTASSIUM 3.6 mmol/L (3.5-5.1)
[2019-07-11 07:06] LABS: MAGNESIUM 2.1 mg/dL (1.8-2.4)
[2019-07-11 07:07] LABS: BASOPHILS % (AUTO) 0.2 % (0.0-2.0); EOSINOPHILS % (AUTO) 0.4 % (0.0-4.0); HEMATOCRIT 41.8 % (36-52); HEMOGLOBIN 13.7 g/dL (12.0-18.0); LYMPHOCYTES # (AUTO) 1.5 K/uL (2.0-11.5); LYMPHOCYTES % (AUTO) 18.3 % (20.5-51.1); MEAN CORPUSCULAR HEMOGLOBIN 29 pg (27-31); MEAN CORPUSCULAR HGB CONC 33 g/dL (33-37); MEAN CORPUSCULAR VOLUME 89.6 fL (80-94); MONOCYTES # (AUTO) 0.7 K/uL (0.8-1.0); MONOCYTES % (AUTO) 8.5 % (1.7-9.3); NEUTROPHILS % (AUTO) 72.6 % (42.2-75.2); PLATELET COUNT (AUTO) 130 K/uL (140-450); RED BLOOD CELL COUNT(AUTO) 4.67 MIL/uL (4.20-6.10); WHITE BLOOD COUNT (AUTO) 8.2 K/uL (4.8-10.8)
--- NOTE | 2019-07-11 07:20 | NUR ---
RECEIVED BEDSIDE REPORT FROM GOVERNMENT MINISTER NURSE. PATIENT IS AWAKE, ALERT AND ORIENTED X4. NO SIGNS OF DISTRESS ON 2L NC. SKIN IS INTACT. IV ON L FA 22G INFUSING NS AT 70. CLEAN, DRY AND INTACT. AMBULATORY. CONTINENT. ABLE TO MAKE NEEDS KNOWN. BED IN LOW POSITION. CALL LIGHT WITHIN REACH. WILL CONTINUE TO MONITOR THE PATIENT.
[2019-07-11 08:00] VITALS: BP 150/103
[2019-07-11] MEDS: NACL 0.9% 1,000 ML IV SCH ×2 (08:01→18:14)
[2019-07-11] MEDS: CALCIUM CARB/VIT-D 500 MG/200 IU 1 TAB PO SCH (08:55)
[2019-07-11] MEDS: LISINOPRIL 20 MG TAB PO SCH (08:55)
[2019-07-11] MEDS: amLODIPine 5 MG TAB PO SCH (08:56)
[2019-07-11] MEDS: FLUoxetine 10 MG CAP PO SCH (08:56)
[2019-07-11] MEDS: PREGABALIN 50 MG CAP PO SCH ×2 (08:56→20:35)
[2019-07-11] MEDS: CARVEDILOL 6.25 MG TAB PO SCH ×2 (08:57→20:36)
[2019-07-11] MEDS: OSELTAMIVIR PHOSPHATE 75 MG CAP PO SCH ×2 (08:57→20:36)
[2019-07-11] MEDS: methylPREDNISolone SS 40 MG/ML VIAL IVP SCH (08:57)
[2019-07-11] MEDS: APIXABAN 2.5 MG TAB PO SCH ×2 (09:03→20:41)
--- NOTE | 2019-07-11 09:07 | NUR ---
ADMINISTERED MEDS. PATIENT TOLERATED WELL. EDUCATED ON SIDE EFFECTS. WILL CONTINUE TO MONITOR THE PATIENT.
--- NOTE | 2019-07-11 10:18 | NUR ---
PATIENT RESTING IN BED. NO SIGNS OF DISTRESS. WILL CONTINUE TO MONITOR
[2019-07-11] MEDS: HYDROcodone/APAP 5/325 MG 1 TAB TAB PO PRN ×2 (12:16→18:13)
--- NOTE | 2019-07-11 12:18 | NUR ---
ADMINISTERED PRN PAIN MED AND MARY ALICE VANCO. PHARMACIST SAID TO CONTINUE VANCO DOSING. WILL CONTINUE TO MONITOR THE PATIENT. EDUCATED ON MEDS
--- NOTE | 2019-07-11 14:40 | NUR ---
PATIENT RESTING IN BED. PATIENT REQUESTED CRANBERRY JUICE, GAVE PATIENT CRANBERRY JUICE.
--- NOTE | 2019-07-11 15:44 | NUR ---
PATIENT LAYING IN BED. FAMILY AT BEDSIDE. WILL CONTINUE TO MONITOR THE PATIENT
[2019-07-11 16:00] VITALS: BP 143/89
--- NOTE | 2019-07-11 17:10 | NUR ---
PATIENT IN NO DISTRESS. WILL CONTINUE TO MONITOR
--- NOTE | 2019-07-11 18:18 | NUR ---
ADMINISTERED MEDS. PATIENT TOLERATED WELL. EDUCATED ON SIDE EFFECTS. WILL CONTINUE TO MONITOR
--- NOTE | 2019-07-11 19:15 | NUR ---
GAVE BEDSIDE REPORT TO CATECHIST NURSE. PATIENT ENDORSED IN STABLE CONDITION
--- NOTE | 2019-07-11 19:17 | NUR ---
GAVE BEDSIDE REPORT TO ROLLER STAINER NURSE. PATIENT ENDORSED IN STABLE CONDITION Addendum: 07/11/19 at 1918 by Elen Sidhu RN DUPLICATE
--- NOTE | 2019-07-11 19:18 | NUR ---
RECEIVED PT SITTING UP ON BED, NO SOB NOTED, OCCASIONAL DRY COUGH NOTED, DENIES ANY PAIN, IVF INFUSING WELL, PLAN OF CARE DISCUSSED, SAFETY MEASURES IN PLACE, MAINTAIN ON DROPLET PRECAUTION FOR POSITIVE INFLUENZA B, CALL LIGHT WITHIN REACH.
--- NOTE | 2019-07-11 20:45 | NUR ---
DUE MEDS ADMINISTERED WITH EDUCATION PROVIDED, TOLERATED WELL, PROVIDED WITH ROSEMARY REYES PER REQUEST, ALL NEEDS ATTENDED.
--- NOTE | 2019-07-11 22:00 | NUR ---
PT SEEN AMBULATING ON THE HALLWAY WITH MASK ON, TOLERATING WELL, MONITORED CLOSELY.
--- NOTE | 2019-07-11 23:40 | NUR ---
PT SLEEPING, EASILY AROUSABLE, VITAL SIGNS STABLE, DENIES ANY PAIN, NO SOB NOTED, DUE ROCEPHIN IVPB INFUSING WELL, CONTINUE TO MONITOR CLOSELY.
[2019-07-12] VITALS: BP 138/93
[2019-07-12] MEDS: ALBUTEROL SULFATE/IPRATROPIU 3 ML SOL IH SCH ×2 (01:34→07:03)
--- NOTE | 2019-07-12 03:31 | NUR ---
GOT A CALL FROM ROGELIO OF [employer] INQUIRING IF THE TRANSFER DUE TO INSURANCE REASON IS STILL OPEN, SPOKE TO DR WISEMAN AND STATED HE DOESN'T KNOW ABOUT IT BUT PT IS POSSIBLE DISCHARGE TODAY, STATED TO WAIT FOR DAY SHIFT RESIDENTS IN 4 HOURS, TOLD ROGELIO TO CALL BACK AROUND [phone], BUGGY LOADER LINDA IS AWARE.
--- NOTE | 2019-07-12 04:09 | NUR ---
ROUNDS MADE, SEE PT SLEEPING, VISIBLE CHEST RISE AND FALL, NO SIGNS OF DISTRESS, IVF INFUSING WELL, MONITORED CLOSELY.
--- NOTE | 2019-07-12 06:48 | NUR ---
DR HA CAME IN AND EXAMINED PT, PT TRANSPORTED TO RADIOLOGY VIA WHEELCHAIR FOR CXR 2 VIEW, WILL ENDORSE.
--- NOTE | 2019-07-12 07:14 | NUR ---
RECEIVED PATIENT ON ROOM AIR, PULSE OX SAT 97%. SCHEDULED BREATHING TREATMENT ADMINISTERED. TOLERATED TX WELL WITHOUT ADVERSE SIDE EFFECTS. NO ACUTE RESPIRATORY DISTRESS NOTED AT THIS TIME. WILL CONTINUE TO MONITOR.
--- NOTE | 2019-07-12 07:21 | NUR ---
PT AWAKE, NO SIGNS OF DISTRESS, REPORT GIVEN TO YARI BLACK FOR CONTINUITY OF CARE.
--- NOTE | 2019-07-12 07:23 | NUR ---
RECEIVED BEDSIDE REPORT FROM ASSOCIATE PROFESSOR OF HISTORY RN. PT IS RESTING IN BED, AAOX4, AMBULATORY. IV IS ON L AC 22, INFUSING TKO RATE. PT WANTS FLU/PNA VACCINE AT D/C. PT IS ON DROPLET PRECAUTIONS FOR BILATERAL PNA. WILL REVIEW AND CONTINUE PLAN OF CARE FOR THE DAY.
[2019-07-12 07:47] LABS: BASOPHILS % (AUTO) 0.2 % (0.0-2.0); EOSINOPHILS # (AUTO) 0.1 K/uL (0-0.4); EOSINOPHILS % (AUTO) 0.7 % (0.0-4.0); HEMATOCRIT 44.2 % (36-52); HEMOGLOBIN 14.7 g/dL (12.0-18.0); LYMPHOCYTES # (AUTO) 2.2 K/uL (2.0-11.5); LYMPHOCYTES % (AUTO) 21.6 % (20.5-51.1); MEAN CORPUSCULAR HEMOGLOBIN 30 pg (27-31); MEAN CORPUSCULAR HGB CONC 33 g/dL (33-37); MEAN CORPUSCULAR VOLUME 89.5 fL (80-94); MONOCYTES # (AUTO) 0.7 K/uL (0.8-1.0); MONOCYTES % (AUTO) 7.1 % (1.7-9.3); NEUTROPHILS # (AUTO) 7.1 K/uL (1.8-7.7); NEUTROPHILS % (AUTO) 70.4 % (42.2-75.2); PLATELET COUNT (AUTO) 159 K/uL (140-450); RED BLOOD CELL COUNT(AUTO) 4.94 MIL/uL (4.20-6.10); WHITE BLOOD COUNT (AUTO) 10.1 K/uL (4.8-10.8)
[2019-07-12 08:00] VITALS: BP 156/101
[2019-07-12 08:08] LABS: ANION GAP 12.8 (8-16); CARBON DIOXIDE 29.4 mmol/L (21-32); CREATININE 0.8 mg/dL (0.7-1.3); POTASSIUM 3.2 mmol/L (3.5-5.1)
[2019-07-12] MEDS: OSELTAMIVIR PHOSPHATE 75 MG CAP PO SCH (08:53)
[2019-07-12] MEDS: CALCIUM CARB/VIT-D 500 MG/200 IU 1 TAB PO SCH (08:54)
[2019-07-12] MEDS: CARVEDILOL 6.25 MG TAB PO SCH (08:55)
[2019-07-12] MEDS: PREGABALIN 50 MG CAP PO SCH (08:55)
[2019-07-12] MEDS: FLUoxetine 10 MG CAP PO SCH (08:56)
[2019-07-12] MEDS: LISINOPRIL 20 MG TAB PO SCH (08:57)
[2019-07-12] MEDS: amLODIPine 5 MG TAB PO SCH (08:57)
[2019-07-12] MEDS: APIXABAN 2.5 MG TAB PO SCH (08:59)
[2019-07-12] MEDS: methylPREDNISolone SS 40 MG/ML VIAL IVP SCH (09:00)
--- NOTE | 2019-07-12 09:00 | NUR ---
ADMINISTERED MORNING MEDICATIONS. MEDICATION EDUCATION GIVEN TO PT. PT VERBALIZED UNDERSTANDING.
[2019-07-12 09:02] LABS: MAGNESIUM 2.2 mg/dL (1.8-2.4); PHOSPHORUS 3.5 mg/dL (2.5-4.9)
[2019-07-12] MEDS ORDERED: POTASSIUM CHLORIDE 20% 40 MEQ/15 ML UDC PO SCH (11:11)
[2019-07-12] MEDS ORDERED: TAM75 PO (11:32)
[2019-07-12] MEDS ORDERED: AMOX-1000 PO (11:32)
[2019-07-12] MEDS ORDERED: LACT-81 PO (11:32)
[2019-07-12] MEDS ORDERED: METH4TAB1 PO (11:51)
--- NOTE | 2019-07-12 12:30 | NUR ---
DISCHARGE EDUCATION GIVEN TO PT. PT VERBALIZED UNDERSTANDING. PT RECEIVED FLU/PNA VACCINE. REMOVED IV LINE, CANNULA INTACT. REMOVED ID BAND. PT WAITING FOR FAMILY MEMBER TO PICK HIM UP.
--- NOTE | 2019-07-12 13:05 | NUR ---
PT FAMILY MEMBER ARRIVED. PT REFUSED WHEELCHAIR. WANTED TO WALK SELF OUT TO LOBBY. ALL PT BELONGINGS WERE WITH PT. PT LEFT IN STABLE CONDITION.
== END 2019-07-12 13:05 | disposition home or self-care (01) | DRG 871 ==
LOC: MED 10:04 → MTU 16:13
PROVIDERS: ADMIT General Practice; ATTEND General Practice
PROC: 3E0234Z Introduction of Serum, Toxoid and Vaccine into Muscle, Percutaneous Approach (ICD-10-PCS; principal; 2019-07-08)
DX: A41.89 Other specified sepsis (principal); J18.9 Pneumonia, unspecified organism; J10.00 Influenza due to other identified influenza virus with unspecified type of pneumonia; J44.0 Chronic obstructive pulmonary disease with (acute) lower respiratory infection; E66.9 Obesity, unspecified; I10 Essential (primary) hypertension; I48.91 Unspecified atrial fibrillation; F32.9 Major depressive disorder, single episode, unspecified; E87.6 Hypokalemia; K76.0 Fatty (change of) liver, not elsewhere classified; E83.39 Other disorders of phosphorus metabolism; M94.0 Chondrocostal junction syndrome [Tietze]; Z23 Encounter for immunization; Z95.0 Presence of cardiac pacemaker; Z68.28 Body mass index [BMI] 28.0-28.9, adult
CPT/HCPCS: 36415; 36600; 71045; 71046; 76705; 80048; 80053; 80202; 80305; 81003; 82150; 82803; 83036; 83605; 83690; 83735; 83880; 84100; 84439; 84443; 84484; 85025; 85610; 85730; 87040; 87070; 87081; 87086; 87205; 87804; 90732; 93005; 94640; 96365; 96375; 96376; 99285; J0696; J2270; J2405; J2543; J2550; J2920; J2930; J3370; J3490; J7030; J7060; J7620; Q0092

== ENCOUNTER 2022-02-12 03:25 | Inpatient (IN) | payer BC ==
[~2022-02-12] VITALS: Ht 172.7 cm; Wt 67.6 kg
[~2022-02-12 03:25] MED LIST changes: -ALBU0.0912 INH; +AMLO10TA89 PO; +AMOX-1000 PO; -ATI.5 PO; +CARV6.25 PO; -CLIN150C1 PO; +FLUO10CA21 PO; +FLUT1POW3 IH; +LACT-81 PO; -LACT1.4C PO; -LEVO750T2 PO; -LISI40TA4 PO; +LISI40TA8 PO; +METH4TAB1 PO; +PREG100C PO; +TAM75 PO
[2022-02-12 03:31] VITALS: BP 136/93
--- NOTE | 2022-02-12 03:48 | NUR ---
PT TO BED 09.
[2022-02-12] MEDS ORDERED: MORPHINE SULFATE 2 MG/ML SYR IVP STA (03:52)
--- NOTE | 2022-02-12 03:52 | NUR ---
ERMD AT BEDSIDE.
[2022-02-12] MEDS ORDERED: NITROGLYCERIN 0.4 MG TAB SL ONE (03:55)
[2022-02-12] MEDS ORDERED: NACL 0.9% 1,000 ML IV ONE (03:55)
--- NOTE | 2022-02-12 03:57 | NUR ---
XRAY AT BEDSIDE
--- NOTE | 2022-02-12 03:58 | NUR ---
X-Ray at bedside.
--- NOTE | 2022-02-12 04:00 | NUR ---
18G TO RT AC ESTAB.
--- NOTE | 2022-02-12 04:00 | NUR ---
1ST NITRO BP AT 139/96
--- NOTE | 2022-02-12 04:02 | NUR ---
BLOOD COLLECTED AND TAKEN TO LAB.
--- NOTE | 2022-02-12 04:02 | NUR ---
56 YO M BIB SELF WITH C/C OF 10/10 STERNAL CHEST PAIN RAD TO LEFT SIDE XYESTERDAY WHILE WORKING ON HIS AUNT'S YARD. PT STATES HE BEGAN TO FEEL SOB AND DIZZY. PT STATES TODAY HE BEGAN TO FEEL NUMBNESS IN ALL LIMBS AND CHEST PAIN CONTINUES. HX:HTN, PACED NKA
--- NOTE | 2022-02-12 04:06 | NUR ---
2ND NITRO BP AT 125/86. CHEST PAIN NOT RELIEVED AFTER 1ST NITRO.
--- NOTE | 2022-02-12 04:11 | NUR ---
YUNIOR COLLECTED AND TAKEN TO LAB
--- NOTE | 2022-02-12 04:12 | NUR ---
CHEST PAIN PERSIST. BP 134/84. 3RD NITRO ADMIN.
[2022-02-12] MEDS ORDERED: ONDANSETRON 4 MG/2 ML VIAL ONE (04:13)
--- NOTE | 2022-02-12 04:14 | NUR ---
PT REPORTS NAUSEA S/P NITRO ADMIN. RECEIVED VERBAL ORDER TO GIVE ZOFRAN IVP 4MG FOR NAUSEA PER ELMO LESLIE.
[2022-02-12] MEDS ORDERED: ONDANSETRON 4 MG/2 ML VIAL IVP ONE (04:15)
[2022-02-12 04:23] LABS: BASOPHILS # (AUTO) 0.1 K/uL (0.00-0.22); BASOPHILS % (AUTO) 0.8 % (0.0-2.0); EOSINOPHILS # (AUTO) 0.3 K/uL (0-0.4); EOSINOPHILS % (AUTO) 4.9 % (0.0-4.0); HEMATOCRIT 38.9 % (36-52); HEMOGLOBIN 13.2 g/dL (12.0-18.0); LYMPHOCYTES # (AUTO) 1.6 K/uL (2.0-11.5); LYMPHOCYTES % (AUTO) 26.7 % (20.5-51.1); MEAN CORPUSCULAR HEMOGLOBIN 31 pg (27-31); MEAN CORPUSCULAR HGB CONC 34 g/dL (33-37); MEAN CORPUSCULAR VOLUME 92.1 fL (80-94); MONOCYTES # (AUTO) 0.3 K/uL (0.8-1.0); MONOCYTES % (AUTO) 5.4 % (1.7-9.3); NEUTROPHILS # (AUTO) 3.8 K/uL (1.8-7.7); NEUTROPHILS % (AUTO) 62.2 % (42.2-75.2); PLATELET COUNT (AUTO) 159 K/uL (140-450); RED BLOOD CELL COUNT(AUTO) 4.23 MIL/uL (4.20-6.10); RED CELL DISTRIBUTION WIDTH 13.2 % (11.6-13.7); WHITE BLOOD COUNT (AUTO) 6.1 K/uL (4.8-10.8)
[2022-02-12 04:28] LABS: ALBUMIN 3.8 g/dL (3.4-5.0); ANION GAP 11.7 (8-16); CARBON DIOXIDE 28.1 mmol/L (21-32); CREATININE 1.1 mg/dL (0.6-1.3); POTASSIUM 3.8 mmol/L (3.5-5.1); TOTAL BILIRUBIN 0.7 mg/dL (0.0-1.0)
--- NOTE | 2022-02-12 04:36 | NUR ---
PT REPORTS 4/10 CHEST PAIN S/P MORPHINE IVP. PT STATES THIS IS TOLERABLE FOR HIM.
[2022-02-12] MEDS ORDERED: CARV12.52 PO (05:12)
[2022-02-12] MEDS ORDERED: ACET-512 PO (05:12)
--- NOTE | 2022-02-12 05:13 | NUR ---
MED RECON COMPLETED. NO WOUNDS PER BODY CHECK.
--- NOTE | 2022-02-12 06:59 | NUR ---
PT APPEARS TO BE RESTING WITH EYES CLOSED, OPENS WITH SOUND. EQUAL RISE AND FALL OF CHEST WALL. PT ON TAX COLLECTION COORDINATOR. BED LOCKED IN LOWEST POSITION, SIDE RAILSX2 FOR SAFETY.
--- NOTE | 2022-02-12 07:08 | NUR ---
PT REPORTS 8/10 CHEST PAIN. PAGEDelonte. RECIEVED TORB OF FOLLOWING ORDERS NITRO 0.4 SUBLINGUAL Q4HR AND MORPHINE 2MG IVP PRN Q4HRS.
[2022-02-12] MEDS ORDERED: NITROGLYCERIN 0.4 MG TAB SL PRN (07:15)
--- NOTE | 2022-02-12 07:16 | NUR ---
Pt report given to YARI RUANO. Transfer of care at this time.
--- NOTE | 2022-02-12 07:17 | NUR ---
REPORT RECEIVED FROM YARI VERMA. TRANSFER OF CARE AT THIS TIME.
--- NOTE | 2022-02-12 08:30 | NUR ---
DR CARLSON AT BEDSIDE FOR EVAL
--- NOTE | 2022-02-12 08:38 | NUR ---
LAB AT BEDSIDE
--- NOTE | 2022-02-12 08:42 | NUR ---
RT AT BEDSIDE
[2022-02-12] MEDS ORDERED: ASPIRIN 81 MG TAB.CHEW PO SCH (09:00)
[2022-02-12] MEDS: MORPHINE SULFATE 2 MG/ML SYR IVP PRN ×3 (09:20→20:14)
--- NOTE | 2022-02-12 09:20 | NUR ---
PT REPORTS 8/10 CRUSHING CHEST PAIN. MORPHINE GIVEN. DECLINED NITRO, STATES INEFFECTIVE FOR PAIN.
--- NOTE | 2022-02-12 10:00 | NUR ---
T RESTING IN BED WITH EYES CLOSED, RESPONDS TO VERBAL AND TACTILE STIMULI. EQUAL RISE AND FALL OF CHEST, REPORTS IMPROVEMENT IN PAIN AFTER MEDICATION. HOB LOWERED PER REQUEST AND COMFORT. BED IN LOW WITH CALL LIGHT IN REACH.
--- NOTE | 2022-02-12 11:45 | NUR ---
PT AMBULATED TO RESTROOM WITH STEADY GAIT.
[2022-02-12] MEDS ORDERED: MAG SULF 2000 MG/WATER PREMIX 50 ML IV PRN (11:55)
[2022-02-12] MEDS ORDERED: POTASSIUM CHLORIDE 10 MEQ TABER PO PRN (12:50)
[2022-02-12] MEDS ORDERED: MORPHINE SULFATE 2 MG/ML SYR IVP PRN (12:50)
[2022-02-12] MEDS ORDERED: DOCUSATE SODIUM 100 MG GELCAP PO PRN (12:50)
[2022-02-12] MEDS ORDERED: ZOLPIDEM 10 MG TAB PO PRN (12:50)
[2022-02-12] MEDS ORDERED: ACETAMINOPHEN 325 MG TAB PO PRN (12:50)
[2022-02-12] MEDS ORDERED: ONDANSETRON 4 MG/2 ML VIAL IVP PRN (12:50)
--- NOTE | 2022-02-12 13:53 | NUR ---
Patient will be admitted to care of Dr Sahu. Admited to telemetry. Will go to room 119b. Belongings list completed. Report to Anna Esteban.
--- NOTE | 2022-02-12 14:30 | NUR ---
RECEIVED REPORT FROM ED NURSE BINDU FOR CONTINUITY OF CARE. PT IN STABLE CONDITION, CURRENTLY AWAKE. A/OX4, BREATHING EVEN, REGULAR AND UNLABORED ON ROOM AIR. PT SKIN IS INTACT, AMBULATORY WITHOUT ASSIST. PT IS CONTINENT OF THE BOWEL AND BLADDER. 18G IV TO THE RIGHT AC, SALINE LOCK. PT COMPLAINED OF CHEST PAIN 01/17, MEDICATED PRN MORPHINE. Addendum: 02/12/22 at 1829 by Carlito Leon RN PER PT, DUE TO HX OF WEIGHT LOSS SURGERY PT CAN ONLY EAT SMALL FREQUENT MEALS, NO DAIRY.
--- NOTE | 2022-02-12 14:32 | NUR ---
PATIENT HAS BEEN SCREENED AND CATEGORIZED LOW NUTRITION RISK. PATIENT WILL BE SEEN WITHIN 7 DAYS OF ADMISSION. 02/18/[address]
--- NOTE | 2022-02-12 17:15 | NUR ---
DC PLANNING: THE PATIENT DROVE HIMSELF TO THE ED WITH C/O CHEST PAIN. H/O A-FIB, PACEMAKER, HTN AND COPD. STARTED ON ASA AND MORPHINE, TROPONINS NEGATIVE, CARDIOLOGY CONSULT ORDERED. CM SPOKE WITH THE PATIENT AT BEDSIDE, HE NOW LIVES IN [place] WITH HIS IN A SINGLE STORY HOUSE. HE IS NORMALLY INDEPENDENT IN ALL ACTIVITIES BUT HAS TO BE CAREFUL NOT TO OVEREXERT BECAUSE OF HIS CARDIAC H/O. HE SEES LYDIA FLEMING, SUSTAINMENT LOGISTICS ANALYST AT [employer] [facility] [place] AND HAS REMOTE PACEMAKER MONITORING IN HIS HOME. NO H/O HOME HEALTH, THE PATIENT WORKS CNC SET UP OPERATOR FOR THE [employer]. HE WILL DRIVE HIMSELF HOME WHEN CLEARED FOR DC, [facility] WILL FOLLOW. Addendum: 02/16/22 at 4709 by Simran Birch CM DC PLANNING: [facility] RECEIVED A CALL FROM JOVITA AT [facility] REQUESTING CLINICAL REVIEW, PACKET FAXED TO [phone]. [facility] WILL FOLLOW.
--- NOTE | 2022-02-12 19:23 | NUR ---
ENDORSED PT TO NIGHTSCTFT NURSE VARUN FOR CONTINUITY OF CARE. PT IN STABLE CONDITION.
[2022-02-12 20:00] VITALS: BP 110/71
--- NOTE | 2022-02-12 20:00 | NUR ---
OPENING NOTE PT AOX4, AMBULATORY WITHOUT ASSISTANCE . PT HAS BRP AND WAS WALKING AROUND UPON ASSESSMENT. PT IS ON RA WITH BREATHING EVEN, REGULAR AND UNLABORED. PT SKIN IS INTACT. PT IS CONTINENT OF THE BOWEL AND BLADDER. PT HAS A 18G IV TO THE RIGHT AC, SALINE LOCK WAS FLUSHED AND IS PATENT WITH NO PAIN. ALL SAFETY MEASURES IN PLACE. WILL CONTINUE TO MONITOR
[2022-02-12] MEDS: FLUoxetine 10 MG CAP PO SCH (20:14)
[2022-02-12] MEDS: APIXABAN 2.5 MG TAB PO SCH (20:15)
[2022-02-12] MEDS: carvediloL 6.25 MG TAB PO SCH (20:15)
--- NOTE | 2022-02-12 20:30 | NUR ---
PAIN PT RATES BACK PAIN A 01/17. TP WAS GIVEN MORPHINE
[2022-02-13] VITALS (7 sets, daily range): BP systolic 112–127; BP diastolic 71–86
[2022-02-13 06:20] LABS: BASOPHILS % (AUTO) 1.1 % (0.0-2.0); EOSINOPHILS # (AUTO) 0.5 K/uL (0-0.4); HEMATOCRIT 35.9 % (36-52); HEMOGLOBIN 12.2 g/dL (12.0-18.0); LYMPHOCYTES # (AUTO) 1.7 K/uL (2.0-11.5); MEAN CORPUSCULAR HEMOGLOBIN 31 pg (27-31); MEAN CORPUSCULAR HGB CONC 34 g/dL (33-37); MEAN CORPUSCULAR VOLUME 91.3 fL (80-94); MONOCYTES # (AUTO) 0.3 K/uL (0.8-1.0); MONOCYTES % (AUTO) 5.9 % (1.7-9.3); PLATELET COUNT (AUTO) 129 K/uL (140-450); RED BLOOD CELL COUNT(AUTO) 3.93 MIL/uL (4.20-6.10); RED CELL DISTRIBUTION WIDTH 13.5 % (11.6-13.7); WHITE BLOOD COUNT (AUTO) 4.5 K/uL (4.8-10.8)
[2022-02-13 06:25] LABS: ANION GAP 8.8 (8-16); POTASSIUM 3.8 mmol/L (3.5-5.1)
--- NOTE | 2022-02-13 07:25 | NUR ---
RECEIVED REPORT FROM ENDO TECH NURSE FOR CONTINUITY OF CARE. PT IN BED, SLEEPING. EASILY AROUSABLE BY VERBAL STIMULI. RESPIRATIONS EVEN AND UNLABORED ON RA. NO DISTRESS NOTED. A&O4, ABLE TO COMMUNICATE NEEDS. PT ON TELE MONITOR. SKIN IS INTACT, WARM AND DRY TO TOUCH. IV SITE AT RAC, 18G, SL. CALL LIGHT WITHIN REACH. SAFETY PRECAUTIONS IN PLACE. WILL CONTINUE TO MONITOR.
[2022-02-13] MEDS: APIXABAN 2.5 MG TAB PO SCH ×2 (09:00→21:23)
[2022-02-13] MEDS: carvediloL 6.25 MG TAB PO SCH ×2 (09:20→21:21)
[2022-02-13] MEDS: lisinopriL 20 MG TAB PO SCH (09:21)
--- NOTE | 2022-02-13 09:24 | NUR ---
ADMINISTERED SCHEDULED MORNING MEDS. PT TEACHING ABOUT MEDS GIVEN. PT VERBALIZED UNDERSTANDING. NON-ADMIT ELIQUIS. PLATELET 129. MD AWARE. PT COMPLAINED OF CHEST PAIN 02/17. WILL INFORM RN.
--- NOTE | 2022-02-13 09:31 | NUR ---
PT SEEN AND CHECKED BY DR CARLSON.
[2022-02-13] MEDS ORDERED: LISI20TA29 PO (10:00)
[2022-02-13] MEDS: MORPHINE SULFATE 2 MG/ML SYR IVP PRN ×3 (10:20→18:59)
--- NOTE | 2022-02-13 11:05 | NUR ---
INFORMED PT ABOUT THE DC ORDER. PT VERBALIZED UNDERSTANDING.
[2022-02-13] MEDS: NACL 0.9% 1,000 ML IV SCH (14:24)
--- NOTE | 2022-02-13 14:27 | NUR ---
PT COMPLAINED OF DIARRHEA. MD MADE AWARE. PER MD HOLD DC. RECEIVED ORDER FOR STOOL CULTURE AND IV FLUIDS. ORDERS CARRIED OUT. DISCUSSED WITH PT POC. PT VERBALIZED UNDERSTANDING. PT COMPLAINING OF ABDOMINAL AND CHEST PAIN 03/20. PRN PAIN MED ADMINISTERED BY YARI HUSSEIN. WILL CONTINUE TO MONITOR.
--- NOTE | 2022-02-13 15:33 | NUR ---
STOOL SPECIMEN COLLECTED AND SENT TO LAB.
--- NOTE | 2022-02-13 17:40 | NUR ---
URINE COLLECTED AND SENT TO LAB.
--- NOTE | 2022-02-13 19:00 | NUR ---
PT COMPLAINED OF ABD PAIN 03/20. PRN PAIN MED ADMINISTERED BY YARI HUSSEIN. WILL ENDORSE TO HEART COORDINATOR NURSE.
[2022-02-13 19:21] LABS: APPEARANCE,URINE CLEAR (CLEAR); BILIRUBIN,URINE NEGATIVE (NEGATIVE); BLOOD, URINE NEGATIVE (NEGATIVE); COLOR,URINE YELLOW (YELLOW); LEUKOCYTE ESTERASE ,URINE NEGATIVE (NEGATIVE); NITRITE, URINE NEGATIVE (NEGATIVE); PH,URINE 5.5 (5.0-9.0); UGLUCOSE NEGATIVE (NEGATIVE)
--- NOTE | 2022-02-13 19:43 | NUR ---
ENDORSED PT TO TOY TRAINS AND ACCESSORIES SALESPERSON NURSE FOR CONTINUITY OF CARE. ALL NEEDS MET THROUGHOUT SHIFT. PT IS STABLE.
[2022-02-13 20:14] LABS: BARBITURATE, URINE NEGATIVE ng/ml (NEG <=200); BENZODIAZEPINE, URINE NEGATIVE ng/mL (NEG <=200); CANNABINOID, URINE NEGATIVE ng/mL (NEG <=50); COCAINE, URINE NEGATIVE ng/mL (NEG <=300); OPIATE, URINE NEGATIVE ng/mL (NEG <=2000); PHENCYCLIDINE SCREEN,URINE NEGATIVE ng/mL (NEG <=25)
[2022-02-13] MEDS: FLUoxetine 10 MG CAP PO SCH (21:22)
--- NOTE | 2022-02-13 21:32 | NUR ---
RECEIVED REPORT FROM [facility] NURSE SORAYA. PATIENT WAS SITTING UP IN BED WATCHING TELEVISION. PATIENT IS A&O X4. PATIENT IS ON ROOM AIR AND BREATHING IS NORMAL WITH SYMMETRICAL RISE AND FALL OF CHEST. PATIENT HAS RAC 20G RUNNING NS AT 75ML/HR. BED IS IN LOWEST POSITION, WHEELS LOCKED, CALL LIGHT IN PLACE. WILL CONTINUE TO OBSERVE.
--- NOTE | 2022-02-13 21:36 | NUR ---
GAVE 2100 MEDICATION TO PATIENT. PATIENT TOLERATED WELL. PATIENT WAS SITTING. IVF WAS RUNNING AT 75ML/HR. WILL CONTINUE TO OBSERVE PATIENT.
[2022-02-14] VITALS: BP 135/89
[2022-02-14] MEDS: MORPHINE SULFATE 2 MG/ML SYR IVP PRN ×4 (00:01→12:37)
--- NOTE | 2022-02-14 00:10 | NUR ---
PATIENT'S 0000 VITALS WERETEMP 97.2, HR 75, BP 135/89, RR 18, O2 98. PATIENT INDICATED PAIN 9/10 AND REQUESTED PAIN MEDICATION. CHECKED CHART AND PAIN MEDICATION WAS APPROPRIATE TO ADMINISTER BASED ON PREVIOUS TIME RECEIVED AND CURRENT VITALS. ADMINISTERED MORPHINE IVP, PATIENT TOLERATED WELL. WILL CONTINUE TO OBSERVE.
--- NOTE | 2022-02-14 01:08 | NUR ---
ASSESSED PATIENT'S PAIN LEVEL. PATIENT WAS SLEEPING, MEDICATION WAS AFFECTIVE IN PROVIDING COMFORT FOR THE PATIENT. IVF WAS RUNNING NS AT 75ML/HR. BREATHING WAS NORMAL WITH SYMMETRICAL RISE AND FALL OF CHEST. WILL CONTINUE TO OBSERVE PATIENT.
--- NOTE | 2022-02-14 03:55 | NUR ---
OBTAINED PATIENT'S VITALS. VITALS WERE TEMP 97.6, HR 70, BP 142/92, O2 97, RR 18. PATIENT WAS SLEEPING UPON ENTERING THE ROOM, AND THEN ROLLED OVER AND WENT BACK TO SLEEP. WILL CONTINUE TO OBSERVE PATIENT.
[2022-02-14 04:00] VITALS: BP 142/92
[2022-02-14] MEDS: NACL 0.9% 1,000 ML IV SCH (04:00)
--- NOTE | 2022-02-14 04:45 | NUR ---
LOOKED IN ON PATIENT. PATIENT WAS AWAKE AND INDICATED 8/10 PAIN. CHECKED PATIENT'S BP AND RR, AND LOOKED OVER CHART. MEDICATION WAS APPROPRIATE FOR PATIENT BASED ON TIME OF PREVIOUS DOSE AND VITALS. GAVE IVP OF MORPHINE AT 0438. PATIENT TOLERATED WELL. BREATHING WAS NORMAL. WILL CONTINUE TO OBSERVE PATIENT.
--- NOTE | 2022-02-14 05:50 | NUR ---
LOOKED IN ON PATIENT. PATIENT WAS SLEEPING. PAIN MEDICATION WAS AFFECTIVE IN REDUCING PATIENT'S PAIN TO MAKE HIM COMFORTABLE. WILL CONTINUE TO OBSERVE PATIENT.
--- NOTE | 2022-02-14 07:30 | NUR ---
ENDORSED TO DAY SHIFT NURSE FOR CONTINUITY OF CARE. PATIENT IS STABLE.
--- NOTE | 2022-02-14 07:30 | NUR ---
RECEIVED PATIENT REPORT FROM AIR BRAKE ADJUSTER NURSE FOR CONTINUITY OF CARE. AOX4, ABLE TO VERBALIZE NEEDS. ON ROOM AIR, NO DISTRESS NOTED. NO C/O PAIN. IV ON RAC 20 GAUGE, RUNNING NS AT 75ML/HR. SKIN IS WARM, DRY, AND INTACT. DENIES PAIN AT THE MOMENT. PLAN OF CARE DISCUSSED. SAFETY PRECAUTIONS IN PLACE. CALL LIGHT WITHIN REACH. WILL CONTINUE TO MONITOR
[2022-02-14 08:00] VITALS: BP 156/99
[2022-02-14 08:10] LABS: EOSINOPHILS # (AUTO) 0.5 K/uL (0-0.4); EOSINOPHILS % (AUTO) 11.9 % (0.0-4.0); HEMATOCRIT 34.1 % (36-52); HEMOGLOBIN 11.5 g/dL (12.0-18.0); LYMPHOCYTES # (AUTO) 1.4 K/uL (2.0-11.5); LYMPHOCYTES % (AUTO) 35.2 % (20.5-51.1); MEAN CORPUSCULAR HEMOGLOBIN 31 pg (27-31); MEAN CORPUSCULAR HGB CONC 34 g/dL (33-37); MEAN CORPUSCULAR VOLUME 91.9 fL (80-94); MONOCYTES # (AUTO) 0.3 K/uL (0.8-1.0); MONOCYTES % (AUTO) 6.6 % (1.7-9.3); NEUTROPHILS # (AUTO) 1.8 K/uL (1.8-7.7); NEUTROPHILS % (AUTO) 45.3 % (42.2-75.2); PLATELET COUNT (AUTO) 127 K/uL (140-450); RED BLOOD CELL COUNT(AUTO) 3.72 MIL/uL (4.20-6.10); RED CELL DISTRIBUTION WIDTH 13.4 % (11.6-13.7); WHITE BLOOD COUNT (AUTO) 3.9 K/uL (4.8-10.8)
[2022-02-14 08:25] LABS: ANION GAP 7.5 (8-16); CARBON DIOXIDE 29.2 mmol/L (21-32); CREATININE 0.9 mg/dL (0.6-1.3); POTASSIUM 3.7 mmol/L (3.5-5.1)
--- NOTE | 2022-02-14 08:30 | NUR ---
due meds given, tolerated well
[2022-02-14] MEDS: APIXABAN 2.5 MG TAB PO SCH (08:38)
[2022-02-14] MEDS: carvediloL 6.25 MG TAB PO SCH (08:38)
[2022-02-14] MEDS: lisinopriL 20 MG TAB PO SCH (08:38)
--- NOTE | 2022-02-14 11:30 | NUR ---
PT ASLEEP IN BED, NO APPARENT DISTRESS, NO S/S OF PAIN
[2022-02-14 12:00] VITALS: BP 120/79
== END 2022-02-14 15:30 | disposition home or self-care (01) | DRG 313 ==
LOC: MED 03:25 → MTU 05:22
PROVIDERS: ADMIT Family Medicine; ATTEND Family Medicine
DX: R07.9 Chest pain, unspecified (principal); I48.91 Unspecified atrial fibrillation; I10 Essential (primary) hypertension; J44.9 Chronic obstructive pulmonary disease, unspecified; H92.01 Otalgia, right ear; F14.10 Cocaine abuse, uncomplicated; R19.7 Diarrhea, unspecified; Z20.822 Contact with and (suspected) exposure to COVID-19; Z79.01 Long term (current) use of anticoagulants; Z95.0 Presence of cardiac pacemaker; Z79.899 Other long term (current) drug therapy
CPT/HCPCS: 36415; 71045; 74150; 80048; 80053; 80305; 81003; 83036; 83735; 83880; 84484; 85025; 85610; 85730; 87045; 87081; 93005; 96365; 99285; J2270; J2405; Q0092

== ENCOUNTER 2022-12-26 09:13 | Emergency (ER) | payer BC ==
[~2022-12-26] VITALS: Ht 172.7 cm; Wt 76.9 kg
[~2022-12-26 09:13] MED LIST changes: -AMLO10TA89 PO; -AMOX-1000 PO; -FLUT1POW3 IH; -LACT-81 PO; +LISI20TA29 PO; -LISI40TA8 PO; -METH4TAB1 PO; -TAM75 PO
[2022-12-26 09:15] VITALS: BP 125/89
--- NOTE | 2022-12-26 09:20 | NUR ---
amb to bed 11
--- NOTE | 2022-12-26 09:25 | NUR ---
20g iv left ac tolerated well, blood drawn, flushed with ns
[2022-12-26] MEDS ORDERED: MORPHINE SULFATE 4 MG/ML SYR IVP ONE (09:40)
[2022-12-26] MEDS ORDERED: ONDANSETRON 4 MG/2 ML VIAL IVP ONE (09:40)
[2022-12-26 10:03] LABS: BASOPHILS % (AUTO) 1.1 % (0.0-2.0); EOSINOPHILS # (AUTO) 0.4 K/uL (0-0.4); EOSINOPHILS % (AUTO) 8.8 % (0.0-4.0); HEMATOCRIT 38.1 % (36-52); LYMPHOCYTES # (AUTO) 1.1 K/uL (2.0-11.5); LYMPHOCYTES % (AUTO) 26.5 % (20.5-51.1); MEAN CORPUSCULAR HEMOGLOBIN 31 pg (27-31); MEAN CORPUSCULAR HGB CONC 34 g/dL (33-37); MEAN CORPUSCULAR VOLUME 89.8 fL (80-94); MONOCYTES # (AUTO) 0.3 K/uL (0.8-1.0); MONOCYTES % (AUTO) 6.2 % (1.7-9.3); NEUTROPHILS # (AUTO) 2.4 K/uL (1.8-7.7); NEUTROPHILS % (AUTO) 57.4 % (42.2-75.2); PLATELET COUNT (AUTO) 147 K/uL (140-450); RED BLOOD CELL COUNT(AUTO) 4.24 MIL/uL (4.20-6.10); RED CELL DISTRIBUTION WIDTH 13.9 % (11.6-13.7); WHITE BLOOD COUNT (AUTO) 4.2 K/uL (4.8-10.8)
[2022-12-26 10:16] LABS: PROTHROMBIN TIME 10.9 secs (10.8-13.4)
[2022-12-26 10:23] LABS: ALBUMIN 3.3 g/dL (3.4-5.0); ASPARTATE AMINOTRANSFERASE 16 U/L (15-37); CARBON DIOXIDE 28.5 mmol/L (21-32); CHLORIDE 105 mmol/L (98-107); CREATININE 0.9 mg/dL (0.6-1.3); GFR ARICAN-AMERICAN 112 mL/min (>90); GLUCOSE 107 mg/dL (74-106); POTASSIUM 3.5 mmol/L (3.5-5.1); SODIUM SERUM 140 mmol/L (136-145); TOTAL BILIRUBIN 0.4 mg/dL (0.0-1.0); UREA NITROGEN, BLOOD 15 mg/dL (7-18)
--- NOTE | 2022-12-26 10:40 | NUR ---
taken to ct
--- NOTE | 2022-12-26 11:40 | NUR ---
sleeping, no ac distress, pacemaker rhythm on cm, o2 sat 99% ra, sr up times 2
[2022-12-26] MEDS ORDERED: ACET-10509 PO (13:32)
[2022-12-26] MEDS ORDERED: AMOX1TAB8 PO (13:32)
[2022-12-26] MEDS ORDERED: AMOXIL/CLAVULANATE 875/125 MG 1 TAB PO ONE (13:35)
[2022-12-26] MEDS ORDERED: ACETAMINOPHEN EXTRA STRENGTH 500 MG TAB PO ONE (13:35)
[2022-12-26 14:02] VITALS: BP 136/76
--- NOTE | 2022-12-26 14:04 | NUR ---
Patient discharged with v/s stable. Written and verbal after care instructions given and explained. Patient alert, oriented and verbalized understanding of instructions. Ambulatory with steady gait. All questions addressed prior to discharge. ID band removed. Patient advised to follow up with PMD. Rx of given. Opportunity to ask questions provided and answered.
== END 2022-12-26 13:45 | disposition home or self-care (01) ==
LOC: MED 09:13
DX: R07.89 Other chest pain (principal); H66.92 Otitis media, unspecified, left ear; E04.1 Nontoxic single thyroid nodule; I10 Essential (primary) hypertension; Z79.899 Other long term (current) drug therapy; Z95.0 Presence of cardiac pacemaker
CPT/HCPCS: 36415; 70498; 71045; 71275; 80053; 84484; 85025; 85610; 85730; 96374; 96375; 99285; J2270; J2405; Q9967